=== PATIENT | female | born 1990 | race Caucasian/White ===

== ENCOUNTER → 2016-10-08 | Outpatient (CLI) | payer BC, MEDICAID ==
[~2016-10-08] MED LIST: MOTR200T44 PO; PRENTAB9 PO; TUMS500C PO; TYLE325T5 PO
--- NOTE | 2016-10-08 10:53 | REP ---
Chest two views HISTORY: Upper respiratory infection Comparison: None The lungs are clear. The heart is normal in size. The pulmonary vasculature is normal in appearance. The bony structure is intact. IMPRESSION: No acute disease. Signed by Abel Sood MD 10/08/2016 10:45 A
== END ==
LOC: M LAB 10:30
PROVIDERS: ATTEND Physician Assistant Medical
DX: J06.9 Acute upper respiratory infection, unspecified (principal)

== ENCOUNTER → 2017-03-07 | Outpatient (REF) | payer BC, MEDICAID | LOC: M LAB REF 16:53 | PROVIDERS: ATTEND Advanced Practice Midwife | DX: Z12.4 Encounter for screening for malignant neoplasm of cervix (principal) ==

== ENCOUNTER → 2017-12-18 | Outpatient (CLI) | payer BC ==
[2017-12-19 14:12] LABS: HCG, SERUM QUANTITATIVE 3922 MIU/ML
== END ==
LOC: M LAB 10:34
DX: O20.0 Threatened abortion (principal)
CPT/HCPCS: 84702

== ENCOUNTER → 2017-12-20 | Outpatient (CLI) | payer BC ==
[2017-12-20 12:04] LABS: HCG, SERUM QUANTITATIVE 4765 MIU/ML
== END ==
LOC: M LAB 10:31
DX: O20.0 Threatened abortion (principal)
CPT/HCPCS: 84702

== ENCOUNTER 2018-01-02 11:44 | Day surgery (SDC) | payer BC ==
[2018-01-02 12:32] LABS: HEMATOCRIT 40.6 % (36.0-47.0); HEMOGLOBIN 13.5 g/dl (12.0-15.5); MEAN CORPUSCULAR HEMOGLOBIN 31.7 pg (27.0-33.0); MEAN CORPUSCULAR HGB CONC 33.3 g/dl (32.0-36.5); MEAN CORPUSCULAR VOLUME 95.3 fl (80.0-96.0); PLATELET COUNT, AUTOMATED 353 10^3/uL (150-450); RED BLOOD COUNT 4.26 10^6/uL (4.00-5.40); WHITE BLOOD COUNT 8.2 10^3/uL (4.0-10.0)
[2018-01-02] MEDS: LR 1,000 ML IV (12:40)
[2018-01-02] MEDS: DOXYCYCLINE HYCLATE 100 MG in D5W MINI-BAG PLUS 100 ML IV (13:25)
[2018-01-02] MEDS ORDERED: PROPOFOL 200 MG/20 ML VIAL As Ordered (13:45)
[2018-01-02] MEDS ORDERED: LIDOCAINE 2% INJ 100 MG/5 ML SDV (FOR ANES.) As Ordered (13:45)
[2018-01-02] MEDS ORDERED: MIDAZOLAM INJ 2 MG/2 ML VIAL (J2250) As Ordered (13:46)
[2018-01-02] MEDS ORDERED: fentaNYL 100 MCG/2 ML INJECTION (J3010) As Ordered (13:46)
[2018-01-02] MEDS ORDERED: KETOROLAC 60 MG/2 ML VIAL (J1885) As Ordered (14:08)
[2018-01-02] MEDS ORDERED: ONDANSETRON 4MG/2ML VIAL (J2405) As Ordered (14:08)
[2018-01-02] MEDS ORDERED: dexameTHASONE 4 MG/ML 1ML VIAL (J1100) As Ordered (14:08)
[2018-01-02] MEDS ORDERED: LR 1,000 ML IV ×2 (15:00)
[2018-01-02] MEDS ORDERED: PERCOCET 5MG/325MG TAB PO (15:00)
[2018-01-02] MEDS ORDERED: ONDANSETRON 4MG/2ML VIAL (J2405) IV (15:00)
[2018-01-02] MEDS ORDERED: fentaNYL 100 MCG/2 ML INJECTION (J3010) IV (15:00)
[2018-01-02] MEDS ORDERED: METOCLOPRAMIDE INJ 10MG/2ML VIAL (J2765) IV (15:00)
[2018-01-02] MEDS ORDERED: DOXYCYCLINE HYCLATE 100 MG TAB PO ×2 (15:30→15:45)
== END 2018-01-02 15:59 | disposition home or self-care (01) ==
LOC: M SDC 11:44
DX: O03.4 Incomplete spontaneous abortion without complication (principal); O02.0 Blighted ovum and nonhydatidiform mole; Z88.2 Allergy status to sulfonamides; Z88.0 Allergy status to penicillin; Z87.891 Personal history of nicotine dependence
CPT/HCPCS: 59812

== ENCOUNTER 2018-12-05 08:46 | Emergency (ER) | payer BC ==
[~2018-12-05] VITALS: Ht 167.6 cm; Wt 98.2 kg
[2018-12-05 10:39] LABS: BASO # 0.1 10^3/uL (0.0-0.2); BASO % 0.7 % (0.0-1.0); EOS # 0.1 10^3/uL (0.0-0.50); EOS % 0.6 % (0.0-3.0); HEMATOCRIT 40.3 % (36.0-47.0); HEMOGLOBIN 13.3 g/dl (12.0-15.5); LYMPH % 23.7 % (24.0-44.0); MEAN CORPUSCULAR VOLUME 96.9 fl (80.0-96.0); MONO # 0.5 10^3/uL (0.0-0.8); MONO % 6.3 % (0.0-5.0); NEUTROPHILS # 5.6 10^3/uL (1.8-7.7); NEUTROPHILS % 68.3 % (36.0-66.0); PLATELET COUNT, AUTOMATED 334 10^3/uL (150-450); RED BLOOD COUNT 4.16 10^6/uL (4.00-5.40); WHITE BLOOD COUNT 8.2 10^3/uL (4.0-10.0)
[2018-12-05 11:56] LABS: CHLAMYDIA DNA AMPLIFICATION NEGATIVE (NEGATIVE); GC DNA AMPLIFICATION NEGATIVE (NEGATIVE)
--- NOTE | 2018-12-05 13:24 | REP ---
FIRST TRIMESTER ULTRASOUND: HISTORY: Vaginal bleeding. The uterus measures 4.5 cm in transverse x 3.8 cm in AP x 8.1 cm in cephalocaudal dimensions. The endometrium measures 1.1 cm. There is no intrauterine . The right ovary measures 2.2 x 1.7 x 2.2 cm. The left ovary measures 2.5 x 1.6 x 2.3 cm. There is no fluid in the cul-de-sac. IMPRESSION: The above findings may represent an early intrauterine versus missed . An ectopic cannot be excluded. A repeat examination may be helpful for further evaluation. Electronically Signed by Abel Sood MD 12/05/2018 01:29 P
[2018-12-05 14:11] VITALS: BP 144/82
== END 2018-12-05 14:28 | disposition home or self-care (01) ==
LOC: M ED 08:46
DX: O20.9 Hemorrhage in early pregnancy, unspecified (principal); O10.911 Unspecified pre-existing hypertension complicating pregnancy, first trimester; O99.331 Smoking (tobacco) complicating pregnancy, first trimester; Z3A.00 Weeks of gestation of pregnancy not specified; Z88.2 Allergy status to sulfonamides

== ENCOUNTER → 2018-12-07 | Outpatient (CLI) | payer BC | LOC: M LAB 09:29 | PROVIDERS: ATTEND Physician Assistant | DX: O26.851 Spotting complicating pregnancy, first trimester (principal) ==

== ENCOUNTER → 2018-12-09 | Outpatient (CLI) | payer BC | LOC: M LAB 09:26 | PROVIDERS: ATTEND Obstetrics & Gynecology | DX: O20.0 Threatened abortion (principal); Z3A.00 Weeks of gestation of pregnancy not specified ==

== ENCOUNTER → 2018-12-09 | Outpatient (CLI) | payer BC | LOC: M LAB 09:29 | PROVIDERS: ATTEND Advanced Practice Midwife | DX: O20.0 Threatened abortion (principal); Z3A.00 Weeks of gestation of pregnancy not specified ==

== ENCOUNTER → 2018-12-15 | Outpatient (CLI) | payer BC | LOC: M LAB 08:01 | PROVIDERS: ATTEND Obstetrics & Gynecology | DX: O20.0 Threatened abortion (principal) ==

== ENCOUNTER → 2018-12-21 | Outpatient (CLI) | payer BC | LOC: M LAB 10:53 | PROVIDERS: ATTEND Obstetrics & Gynecology | DX: O03.4 Incomplete spontaneous abortion without complication (principal) ==

== ENCOUNTER → 2019-01-21 | Outpatient (CLI) | payer BC ==
[2019-01-21 07:22] LABS: BASO # 0.1 10^3/uL (0.0-0.2); BASO % 0.8 % (0.0-1.0); EOS # 0.1 10^3/uL (0.0-0.50); HEMATOCRIT 39.2 % (36.0-47.0); HEMOGLOBIN 13.1 g/dl (12.0-15.5); LYMPH # 2.3 10^3/uL (1.5-6.5); LYMPH % 25.6 % (24.0-44.0); MEAN CORPUSCULAR HEMOGLOBIN 31.6 pg (27.0-33.0); MEAN CORPUSCULAR HGB CONC 33.4 g/dl (32.0-36.5); MEAN CORPUSCULAR VOLUME 94.5 fl (80.0-96.0); MONO # 0.6 10^3/uL (0.0-0.8); MONO % 6.4 % (0.0-5.0); NEUTROPHILS # 5.9 10^3/uL (1.8-7.7); PLATELET COUNT, AUTOMATED 307 10^3/uL (150-450); RED BLOOD COUNT 4.15 10^6/uL (4.00-5.40)
[2019-01-21 07:55] LABS: ALBUMIN 3.8 GM/DL (3.2-5.2); ALT/SGPT 16 U/L (12-78); BILIRUBIN,TOTAL 0.3 MG/DL (0.2-1.0); BLOOD UREA NITROGEN 14 MG/DL (7-18); CALCIUM LEVEL 8.4 MG/DL (8.5-10.1); CARBON DIOXIDE LEVEL 25 MEQ/L (21-32); CHLORIDE LEVEL 108 MEQ/L (98-107); CHOLESTEROL LEVEL 205 MG/DL (<200); CREATININE FOR GFR 0.72 MG/DL (0.55-1.30); FREE T4 0.99 NG/DL (0.76-1.46); GLOMERULAR FILTRATION RATE > 60.0 (>60); GLUCOSE, FASTING 90 MG/DL (70-100); HDL CHOLESTEROL 56 MG/DL (>40); LDL CHOLESTEROL 107 MG/DL (<100); NON-HDL-C 149 MG/DL; POTASSIUM SERUM 4.1 MEQ/L (3.5-5.1); SODIUM LEVEL 140 MEQ/L (136-145); TOTAL PROTEIN 6.9 GM/DL (6.4-8.2); TRIGLYCERIDES LEVEL 209 MG/DL (<150)
[2019-01-22 14:11] LABS: ANTINUCLEAR ANTIBODIES DIRECT Negative (Negative)
== END ==
LOC: M LAB 06:39
PROVIDERS: ATTEND Internal Medicine
DX: Z00.00 Encounter for general adult medical examination without abnormal findings (principal); Z87.59 Personal history of other complications of pregnancy, childbirth and the puerperium

== ENCOUNTER 2019-05-06 06:01 | Emergency (ER) | payer OTHER, BC ==
[~2019-05-06] VITALS: Ht 167.6 cm; Wt 87.3 kg
[2019-05-06] MEDS ORDERED: ATOR1TAB21 PO (06:06)
[2019-05-06] MEDS ORDERED: SERT-155 PO (06:06)
[2019-05-06] MEDS ORDERED: AMLO5TAB6 PO (06:06)
[2019-05-06] MEDS ORDERED: ACETAMINOPHEN 325 MG TAB PO ONE (06:45)
[2019-05-06] MEDS ORDERED: NEOSPORIN OINT 0.9 GM PKT (FLOOR STOCK) TOP ONE (06:45)
[2019-05-06 07:14] VITALS: BP 138/85
== END 2019-05-06 07:21 | disposition home or self-care (01) ==
LOC: M ED 06:01
DX: T25.231A Burn of second degree of right toe(s) (nail), initial encounter (principal); T31.0 Burns involving less than 10% of body surface; Y92.89 Other specified places as the place of occurrence of the external cause; Y93.89 Activity, other specified; I10 Essential (primary) hypertension; E78.5 Hyperlipidemia, unspecified; Z72.0 Tobacco use; Z79.899 Other long term (current) drug therapy; Z88.2 Allergy status to sulfonamides

== ENCOUNTER 2019-05-08 12:53 | Emergency (ER) | payer OTHER, BC ==
[~2019-05-08] VITALS: Ht 167.6 cm; Wt 87.6 kg
[~2019-05-08 12:53] MED LIST changes: +AMLO5TAB6 PO; +ATOR1TAB21 PO; +SERT-155 PO
[2019-05-08] MEDS ORDERED: KEFL500C17 PO (14:03)
[2019-05-08] MEDS ORDERED: CEPHALEXIN 500 MG CAP PO ONE (14:15)
[2019-05-08 14:19] VITALS: BP 131/80
== END 2019-05-08 14:23 | disposition home or self-care (01) ==
LOC: M ED 12:53
DX: T25.231D Burn of second degree of right toe(s) (nail), subsequent encounter (principal); T31.0 Burns involving less than 10% of body surface; X12.XXXA Contact with other hot fluids, initial encounter; Y99.0 Civilian activity done for income or pay; F17.210 Nicotine dependence, cigarettes, uncomplicated; Z79.899 Other long term (current) drug therapy; Z88.2 Allergy status to sulfonamides

== ENCOUNTER → 2019-11-17 | Outpatient (REF) | payer BC ==
[~2019-11-17] MED LIST changes: +KEFL500C17 PO; -SERT-155 PO; +SERT50TA29 PO
[2019-11-17 16:57] LABS: INFLUENZA A AMPLIFICATION NEGATIVE (NEGATIVE); INFLUENZA B AMPLIFICATION NEGATIVE (NEGATIVE)
== END ==
LOC: M LAB REF 15:37
PROVIDERS: ATTEND Physician Assistant
DX: J11.1 Influenza due to unidentified influenza virus with other respiratory manifestations (principal)

== ENCOUNTER → 2019-11-23 | Outpatient (REF) | payer BC ==
[2019-11-23 13:21] LABS: INFLUENZA A AMPLIFICATION POSITIVE (NEGATIVE); INFLUENZA B AMPLIFICATION NEGATIVE (NEGATIVE)
== END ==
LOC: M LAB REF 12:14
PROVIDERS: ATTEND Physician Assistant
DX: J11.1 Influenza due to unidentified influenza virus with other respiratory manifestations (principal)

== ENCOUNTER → 2020-01-18 | Outpatient (REF) | payer BC | LOC: M PLALAB 15:18 | PROVIDERS: ATTEND Obstetrics & Gynecology | DX: N96 Recurrent pregnancy loss (principal) ==

== ENCOUNTER → 2020-03-28 | Outpatient (CLI) | payer BC ==
[~2020-03-28] MED LIST changes: +AMLO1TAB24 PO; -AMLO5TAB6 PO
== END ==
LOC: M LABSMTC 12:36
PROVIDERS: ATTEND Pediatrics
DX: Z11.59 Encounter for screening for other viral diseases (principal)
CPT/HCPCS: C9803; U0002

== ENCOUNTER → 2020-04-17 | Outpatient (REF) | payer BC | LOC: M SFHCWAGY 13:53 | PROVIDERS: ATTEND Obstetrics & Gynecology | DX: Z32.00 Encounter for pregnancy test, result unknown (principal) ==

== ENCOUNTER → 2020-04-19 | Outpatient (REF) | payer BC | LOC: M SFHCWAGY 12:29 | PROVIDERS: ATTEND Obstetrics & Gynecology | DX: O10.019 Pre-existing essential hypertension complicating pregnancy, unspecified trimester (principal); Z3A.00 Weeks of gestation of pregnancy not specified ==

== ENCOUNTER → 2020-05-26 | Outpatient (CLI) | payer BC ==
[2020-05-26 12:16] LABS: BASO % 0.4 % (0.0-1.0); EOS # 0.1 10^3/uL (0.0-0.5); HEMATOCRIT 39.5 % (36.0-47.0); HEMOGLOBIN 12.8 g/dl (12.0-15.5); LYMPH # 2.1 10^3/uL (1.5-5.0); LYMPH % 20.6 % (24.0-44.0); MEAN CORPUSCULAR HEMOGLOBIN 31.3 pg (27.0-33.0); MEAN CORPUSCULAR HGB CONC 32.4 g/dl (32.0-36.5); MEAN CORPUSCULAR VOLUME 96.6 fl (80.0-96.0); MONO # 0.6 10^3/uL (0.0-0.8); MONO % 5.7 % (0.0-5.0); NEUTROPHILS # 7.2 10^3/uL (1.5-8.5); PLATELET COUNT, AUTOMATED 333 10^3/uL (150-450); RED BLOOD COUNT 4.09 10^6/uL (4.00-5.40)
[2020-05-26 12:41] LABS: ALBUMIN 3.1 GM/DL (3.2-5.2); ALT/SGPT 13 U/L (12-78); BILIRUBIN,TOTAL 0.2 MG/DL (0.2-1.0); BLOOD UREA NITROGEN 9 MG/DL (7-18); CALCIUM LEVEL 8.9 MG/DL (8.5-10.1); CARBON DIOXIDE LEVEL 24 MEQ/L (21-32); CHLORIDE LEVEL 107 MEQ/L (98-107); CREATININE FOR GFR 0.57 MG/DL (0.55-1.30); GLOMERULAR FILTRATION RATE > 60.0 (>60); GLUCOSE, FASTING 97 MG/DL (70-100); POTASSIUM SERUM 3.9 MEQ/L (3.5-5.1); SODIUM LEVEL 138 MEQ/L (136-145); TOTAL PROTEIN 6.6 GM/DL (6.4-8.2)
[2020-05-26 12:57] LABS: HEMOGLOBIN A1c 5.2 %
[2020-05-26 13:29] LABS: HEPATITIS C VIRUS ABY INDEX 0.2 INDEX (<0.8); HIV 1&2 SCREEN CENTAUR NEGATIVE (NEGATIVE)
== END ==
LOC: M PLALAB 10:16
PROVIDERS: ATTEND Obstetrics & Gynecology
DX: O10.919 Unspecified pre-existing hypertension complicating pregnancy, unspecified trimester (principal)

== ENCOUNTER → 2020-05-26 | Outpatient (REF) | payer BC ==
[2020-05-26 15:06] LABS: TOTAL PROTEIN,RANDOM URINE 15.5 MG/DL (0.0-12.0)
== END ==
LOC: M SFHCWAGY 13:41
PROVIDERS: ATTEND Obstetrics & Gynecology
DX: O10.011 Pre-existing essential hypertension complicating pregnancy, first trimester (principal); Z3A.00 Weeks of gestation of pregnancy not specified

== ENCOUNTER → 2020-07-19 | Outpatient (CLI) | payer BC, MEDICAID ==
--- NOTE | 2020-07-20 07:48 | REP ---
INDICATION: ANATOMY COMPARISON: None. TECHNIQUE: Transabdominal obstetrical ultrasound with color Doppler evaluation. FINDINGS: Examination demonstrates a single live intrauterine in cephalic presentation. motion is identified by technologist. Placenta is noted posterior and grade 1 without evidence for placenta previa or abruption. Amniotic fluid volume is normal. Cervix measures 3.4 cm in length and appears closed.. Gestational age by current measurements 19 weeks 2 days with ZAIN 12/11/2020. FHR equals 140 beats per minute. BPD: 4.4 cm 19 weeks 1 day HC: 16.2 cm 19 weeks 0 days AC: 14.5 cm there is 19 weeks 6 days FL: 3.0 cm 19 weeks 2 days HL: 2.8 cm 19 weeks 0 days HC/AC: 1.12 Estimated weight 297 grams (61stpercentile). Anatomical assessment demonstrates normal structures including cranium, cavum, cerebellum/posterior fossa, facial features, lungs, four-chamber heart/ventricular outflow tracts, diaphragm, stomach, cord insertion/three-vessel cord, kidneys/bladder, spine, and extremities. Multi-cystic versus multi-septated cystic changes to the bilateral choroid plexus noted measuring up to 6 mm diameter. IMPRESSION: 1. Single live intrauterine in cephalic presentation demonstrating appropriate estimated weight. 2. Cystic changes to the bilateral choroid plexus. Consider follow-up examination. Remainder of the anatomical assessment appears complete and normal. <Electronically signed by Shahbaz Mckeon > 07/20/20 1949
== END ==
LOC: M WHC 14:30
PROVIDERS: ATTEND Specialist
DX: Z34.82 Encounter for supervision of other normal pregnancy, second trimester (principal); Z3A.19 19 weeks gestation of pregnancy

== ENCOUNTER → 2020-08-02 | Outpatient (CLI) | payer BC, MEDICAID | LOC: M WHC 14:25 | PROVIDERS: ATTEND Obstetrics & Gynecology | DX: Z3A.20 20 weeks gestation of pregnancy (principal); Z53.9 Procedure and treatment not carried out, unspecified reason ==

== ENCOUNTER → 2020-08-04 | Outpatient (CLI) | payer BC ==
--- NOTE | 2020-08-04 16:30 | REP ---
INDICATION: RE-EVAL CHOROID PLEXUS CYSTS. COMPARISON: 07/19/2020 FINDINGS: Bilateral choroid plexus cysts with septations are again seen. These are unchanged. Multiple ultrasonographic images of the gravid uterus shows a single living intrauterine gestation in variable positions. The placenta is posterior and not low-lying. The cervix measures 3.6 cm in length and is closed. Doppler interrogation of the heart is a heart rate of 161 beats per minute. The subjective amniotic fluid volume is within normal limits. BPD: 5.0 cm (21 weeks 1 day) HC: 18.1 cm.) 20 weeks 3 days) FL: 3.6 cm (21 weeks 2 days) Estimated weight is 419 g which is greater than 97th percentile for a 20 week 2 day gestational age. IMPRESSION: Single living intrauterine gestation as described above with an estimated gestational age of 21 weeks 2 days via composite criteria and an estimated date of delivery of 12/13/2020 by today's exam. Persistent choroid plexus cysts as described above. Additional follow-up is warranted. <Electronically signed by Nelson Black > 08/04/20 2746
== END ==
LOC: M WHC 14:32
PROVIDERS: ATTEND Obstetrics & Gynecology
DX: O41.8X20 Other specified disorders of amniotic fluid and membranes, second trimester, not applicable or unspecified (principal); Z3A.20 20 weeks gestation of pregnancy

== ENCOUNTER → 2020-08-30 | Outpatient (REF) | payer BC, MEDICAID | LOC: M PLALAB 14:52 | PROVIDERS: ATTEND Obstetrics & Gynecology | DX: Z3A.24 24 weeks gestation of pregnancy (principal) ==

== ENCOUNTER → 2020-09-08 | Outpatient (REF) | payer BC, MEDICAID ==
[2020-09-08 15:35] LABS: ALBUMIN 2.7 GM/DL (3.2-5.2); ALT/SGPT 13 U/L (12-78); BILIRUBIN,DIRECT < 0.1 MG/DL (0.0-0.2); BILIRUBIN,TOTAL 0.2 MG/DL (0.2-1.0); TOTAL PROTEIN 6.3 GM/DL (6.4-8.2)
== END ==
LOC: M PLALAB 13:31
PROVIDERS: ATTEND Advanced Practice Midwife
DX: R21 Rash and other nonspecific skin eruption (principal)

== ENCOUNTER → 2020-09-25 | Outpatient (REF) | payer BC, MEDICAID ==
[2020-09-25 12:25] LABS: HEMATOCRIT 36.9 % (36.0-47.0); HEMOGLOBIN 11.7 g/dl (12.0-15.5); MEAN CORPUSCULAR HEMOGLOBIN 30.7 pg (27.0-33.0); MEAN CORPUSCULAR HGB CONC 31.7 g/dl (32.0-36.5); MEAN CORPUSCULAR VOLUME 96.9 fl (80.0-96.0); PLATELET COUNT, AUTOMATED 331 10^3/uL (150-450); RED BLOOD COUNT 3.81 10^6/uL (4.00-5.40); WHITE BLOOD COUNT 10.1 10^3/uL (4.0-10.0)
== END ==
LOC: M PLALAB 08:44
PROVIDERS: ATTEND Obstetrics & Gynecology
DX: O99.810 Abnormal glucose complicating pregnancy (principal); Z3A.24 24 weeks gestation of pregnancy

== ENCOUNTER → 2020-10-11 | Outpatient (REF) | payer SELFPAY | LOC: M LABSMTC 14:08 → EDSTATUS 14:15 → M LABSMTC 16:07 | PROVIDERS: ATTEND Pediatrics | DX: Z20.822 Contact with and (suspected) exposure to COVID-19 (principal) ==

== ENCOUNTER → 2020-10-16 | Outpatient (CLI) | payer BC, MEDICAID ==
[~2020-10-16] VITALS: Ht 167.6 cm; Wt 104.6 kg
[2020-10-16 15:49] VITALS: BP 126/71
[2020-10-16 16:03] VITALS: BP 126/77
[2020-10-16 16:19] VITALS: BP 120/76
[2020-10-16 16:33] VITALS: BP 127/75
--- NOTE | 2020-10-16 16:56 | IPNPDOC ---
Text Note Date of Service The patient was seen on 10/16/20. NOTE Outpatient Subjective: Eufmeia is a 30 y/o at 30.5 weeks by LMP 03/11/20, ZAIN 12/20/2020. Started care at [facility] in the first trimester. She was sent over from the office by Dr. Bejarano for elevated BPs. Denies headaches, visual changes, epigastric pain, nausea. Reports active movement. Denies difficulty breathing, SOB, chest pain. Denies contractions, vaginal bleeding, LOF. C/O round ligament pain that is exacerbated by working her 8hr shifts. Discussed use of a large maternity belt, compression stockings that extend up to the abdomen for good support, supportive shoes, and good body mechanics. Medical Hx.: Chronic HTN, taking Amlodipine 10mg PO daily, anxiety taking Zoloft 25mg, obesity (BMi 37.2) Surgical Hx.: [place] tooth removal, 2018-D&C with miscarriage [employer] Hx.: x1 at 38weeks, SAB x3 Family Hx.: Stroke, hypertension, heart disease Social Hx.: Smoker, , Denies illicit drug or alcohol use. 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 Objective: VS: Normotensive, afebrile. Manual BP 128/76. General: Alert and oriented x3. Respiratory: Regular rate, no accessory muscle use. Abdomen: Gravid. Soft, nontender. Extremities: Mild edema bilaterally,nonpitting. Negative calf tenderness. Negative clonus. DTRs +2. Fetus: 135bpm baseline, moderate variability, positive 10x10 accelerations, no decelerations, Category 1 FHT. TOCO: irregular contractions, patient unaware of them. Assessment: IUP at 30.5weeks. Chronic HTN. Not in active labor. Not SROM. Plan: Preeclamptic work up per Dr. Bejarano Serial BPs NST Patient to make an appointment for growth sono at 32weeks and make an appointment for her 3hr GTT due to 1hr failed. Discharged patient home today with precautions. Discussed reasons to call and/or return to L&D including s/s of preeclampsia, vaginal bleeding, LOF, regular contractions, and decreased movement. VS,Fishbone, I+O VS, Fishbone, I+O Vital Signs Date Time Temp Pulse Resp B/P (MAP) Pulse Ox O2 Delivery O2 Flow Rate FiO2 10/16/20 16:19 74 18 120/76 (91) 10/16/20 15:49 99.0 GABINO DOWELL Oct 16, 2020 16:56
[2020-10-16 17:10] LABS: HEMATOCRIT 36.9 % (36.0-47.0); HEMOGLOBIN 11.7 g/dl (12.0-15.5); MEAN CORPUSCULAR HGB CONC 31.7 g/dl (32.0-36.5); MEAN CORPUSCULAR VOLUME 97.9 fl (80.0-96.0); PLATELET COUNT, AUTOMATED 299 10^3/uL (150-450); RED BLOOD COUNT 3.77 10^6/uL (4.00-5.40); WHITE BLOOD COUNT 10.6 10^3/uL (4.0-10.0)
[2020-10-16 17:39] LABS: ALT/SGPT 11 U/L (12-78); BILIRUBIN,TOTAL < 0.1 MG/DL (0.2-1.0); GLOMERULAR FILTRATION RATE > 60.0 (>60); LDH LACTATE DEHYDROGENASE 137 U/L (84-246); URIC ACID 3.7 MG/DL (2.6-6.0)
[2020-10-16 17:52] LABS: TOTAL PROTEIN,RANDOM URINE 18.1 MG/DL (0.0-12.0)
== END ==
LOC: M LDO 15:06
PROVIDERS: ATTEND Advanced Practice Midwife
DX: O10.013 Pre-existing essential hypertension complicating pregnancy, third trimester (principal); Z3A.30 30 weeks gestation of pregnancy; Z87.59 Personal history of other complications of pregnancy, childbirth and the puerperium; Z88.1 Allergy status to other antibiotic agents; Z88.2 Allergy status to sulfonamides
CPT/HCPCS: 36415; 82247; 82565; 82570; 83615; 84156; 84450; 84460; 84550; 85027; G0378; G0463

== ENCOUNTER → 2020-10-16 | Outpatient (CLI) | payer BC, MEDICAID | LOC: M WHC 15:00 | PROVIDERS: ATTEND Obstetrics & Gynecology | DX: Z34.83 Encounter for supervision of other normal pregnancy, third trimester (principal); Z3A.30 30 weeks gestation of pregnancy ==

== ENCOUNTER → 2020-10-20 | Outpatient (CLI) | payer BC, MEDICAID | LOC: M LAB 07:56 | PROVIDERS: ATTEND Obstetrics & Gynecology | DX: O99.810 Abnormal glucose complicating pregnancy (principal); Z3A.00 Weeks of gestation of pregnancy not specified ==

== ENCOUNTER → 2020-10-27 | Outpatient (CLI) | payer BC, MEDICAID ==
--- NOTE | 2020-10-27 09:26 | REP ---
INDICATION: GROWTH/HYPERTENSION COMPARISON: 08/04/2020 TECHNIQUE: Transabdominal obstetrical ultrasound with color Doppler evaluation. FINDINGS: Examination demonstrates a single live intrauterine in cephalic presentation. motion is identified by technologist. Placenta is noted posterior and grade 1 without evidence for placenta previa or abruption. Amniotic fluid volume is normal. Cervix measures 3.1 cm in length and appears closed.. Gestational age by LMP 32 weeks 2 days with ZAIN 12/20/2020. Gestational age by current measurements 33 weeks 3 days with ZAIN 12/12/2020. FHR equals 143 beats per minute. BPD: 8.5 cm 34 weeks 2 days HC: 30.5 cm 34 weeks 0 days AC: 30.5 cm 34 weeks 3 days FL: 6.2 cm 32 weeks 0 days HL: 5.6 cm 32 weeks 5 days HC/AC: 1.00 Estimated weight 2256 grams (82ndpercentile). MAGGIE: 14.7 cm IMPRESSION: Single live intrauterine in cephalic presentation demonstrating appropriate interval growth. Previously noted choroid plexus cysts appear to have resolved. No gross abnormalities are identified. <Electronically signed by Shahbaz Mckeon > 10/27/20 0923
== END ==
LOC: M WHC 08:08
PROVIDERS: ATTEND Specialist
DX: O10.013 Pre-existing essential hypertension complicating pregnancy, third trimester (principal)

== ENCOUNTER → 2020-11-13 | Outpatient (CLI) | payer SELFPAY | LOC: M LABSMTC 10:29 | PROVIDERS: ATTEND Pediatrics | DX: Z20.828 Contact with and (suspected) exposure to other viral communicable diseases (principal) ==

== ENCOUNTER → 2020-11-15 | Outpatient (CLI) | payer BC, MEDICAID | LOC: M WHC 14:41 | PROVIDERS: ATTEND Obstetrics & Gynecology | DX: Z34.93 Encounter for supervision of normal pregnancy, unspecified, third trimester (principal); Z3A.35 35 weeks gestation of pregnancy; Z53.9 Procedure and treatment not carried out, unspecified reason ==

== ENCOUNTER → 2020-11-22 | Outpatient (CLI) | payer BC, MEDICAID ==
--- NOTE | 2020-11-22 16:58 | REP ---
INDICATION: GROWTH COMPARISON: 10/27/2020 TECHNIQUE: Transabdominal obstetrical ultrasound with color Doppler evaluation. FINDINGS: Examination demonstrates a single live intrauterine in cephalic presentation. motion is identified by technologist. Placenta is noted posterior and grade 2 without evidence for placenta previa or abruption. Amniotic fluid volume is normal. Cervix measures 3.2 cm in length and appears closed.. Gestational age by LMP 36 weeks 0 days with ZAIN 12/20/2020. Gestational age by 1st ultrasound 37 weeks 2 days with ZAIN 12/11/2020. Gestational age by current measurements 36 weeks 2 days with ZAIN 12/18/2020. FHR equals 143 beats per minute. BPD: 9.1 cm at 36 weeks 6 days HC: 31.7 cm at 35 weeks 4 days AC: 34.6 cm at 30 weeks 4 days FL: 6.8 cm at 34 weeks 6 days HL: 6.2 cm at 36 weeks 0 days HC/AC: 0.92 Estimated weight 3131 grams (80thpercentile based on age by LMP). MAGGIE: 9.1 cm (7.7-24.9) IMPRESSION: Single live advanced gestation in cephalic presentation demonstrating relatively appropriate interval growth. No obvious gross abnormalities are identified. <Electronically signed by Shahbaz Mckeon > 11/22/20 1924
== END ==
LOC: M WHC 15:25
PROVIDERS: ATTEND Obstetrics & Gynecology
DX: O10.013 Pre-existing essential hypertension complicating pregnancy, third trimester (principal); O99.333 Smoking (tobacco) complicating pregnancy, third trimester; Z3A.36 36 weeks gestation of pregnancy

== ENCOUNTER → 2020-11-23 | Outpatient (REF) | payer BC, MEDICAID | LOC: M SFHCWAGY 18:08 | PROVIDERS: ATTEND Obstetrics & Gynecology | DX: O10.013 Pre-existing essential hypertension complicating pregnancy, third trimester (principal) ==

== ENCOUNTER 2020-11-29 09:35 | Inpatient (IN) | payer BC, MEDICAID ==
[~2020-11-29] VITALS: Ht 167.6 cm; Wt 107.2 kg
[2020-11-29] VITALS (16 sets, daily range): BP systolic 108–145; BP diastolic 53–81
[2020-11-29] MEDS ORDERED: LABE20TAB PO (09:48)
[2020-11-29] MEDS ORDERED: LACTATED RINGER'S 1000 ML IV ONE (10:45)
[2020-11-29] MEDS ORDERED: miSOPROStol 50MCG 1/2 TABLET PO ONE ×2 (10:45→15:45)
[2020-11-29 10:53] LABS: HEMOGLOBIN 11.6 g/dl (12.0-15.5); MEAN CORPUSCULAR HEMOGLOBIN 31.5 pg (27.0-33.0); MEAN CORPUSCULAR HGB CONC 33.1 g/dl (32.0-36.5); MEAN CORPUSCULAR VOLUME 95.1 fl (80.0-96.0); PLATELET COUNT, AUTOMATED 269 10^3/uL (150-450); RED BLOOD COUNT 3.68 10^6/uL (4.00-5.40); WHITE BLOOD COUNT 10.1 10^3/uL (4.0-10.0)
--- NOTE | 2020-11-29 11:05 | HPE ---
HISTORY AND PHYSICAL DATE OF ADMISSION: 11/29/2020 HISTORY OF PRESENT ILLNESS: Eufemia is a 30-year-old 5 para 1-0-3-1 at 37 weeks gestation, EDC of 12/20/2020 based on last menstrual period and confirmed by first trimester ultrasound. She presents to Labor and Delivery today for an induction of labor due to chronic hypertension and obesity. Her blood pressures has been managed with amlodipine and Labetalol throughout her . She is normotensive today. She denies contractions, vaginal bleeding or leakage of fluid. She does report positive movement. care initiated at [facility] in the first trimester. course complicated by chronic hypertension and obesity. OBSTETRIC HISTORY: On 06/02/2016, 38 weeks gestation, 7 pound, 12 ounce male, spontaneous vaginal delivery, epidural for labor coping following premature rupture of membranes and elevated blood pressure, and then three miscarriages. OBSTETRIC LABS: O positive, antibody screen negative, syphilis negative, hepatitis B negative, hepatitis C negative. HIV negative. Rubella immune. GBS is 138. Her 3 hour glucose tolerance test is normal with a fasting of 82, 1 hour 161, 2 hour 104, 3 hour 47. GBS is negative. PAST MEDICAL HISTORY: Chronic hypertension, anxiety, obesity. PAST SURGICAL HISTORY: [place] tooth extraction, D and C following one of her miscarriages. FAMILY HISTORY: Cerebral infarction, hypertension and COPD. SOCIAL HISTORY: The patient is . She works at [employer] in the [employer]. She smoked five cigarettes or less throughout her . She denies alcohol and drug use. She has no history of sexually transmitted infections and she denies a history of abuse, physical, sexual or emotional. ALLERGIES: Sulfa. CURRENT MEDICATIONS: 1. Amlodipine. 2. Labetalol. 3. vitamin as ordered, last dose this morning. PHYSICAL EXAMINATION: Blood pressure 112/67, pulse 90, a complete set of vital signs have yet to be taken. heart rate is 145 with moderate variability, there are no accelerations and no decelerations. There is no pattern of regular contractions. Her abdomen is gravid, cephalic presentation by Kb's. Estimated weight 3300 grams. Sterile vaginal exam: 2 cm dilated, 50% effaced, 0 station, very posterior, moderate texture and no show with the exam. ASSESSMENT: Intrauterine at 37 weeks, heart rate is Category 1, chronic hypertension. PLAN: Per consult with Dr. Bejarano. Admit patient to Labor and Delivery for induction of labor, saline lock, routine laboratories with the addition of preeclamptic profile. Out of bed ad anton, regular diet at this time. I plan to start Misoprostol 50 mcg p.o. for cervical ripening. I did verbally consent the patient for emergency surgery and blood products if they are necessary. The risks, benefits and alternatives have been explained. All of her questions and her 's questions have been answered. I do anticipate cervical ripening, likely will start Pitocin for labor induction and the patient does desire an epidural when she is uncomfortable.
[2020-11-29 12:03] LABS: ALT/SGPT 10 U/L (12-78); BILIRUBIN,TOTAL 0.2 MG/DL (0.2-1.0); CREATININE FOR GFR 0.54 MG/DL (0.55-1.30); GLOMERULAR FILTRATION RATE > 60.0 (>60); LDH LACTATE DEHYDROGENASE 150 U/L (84-246); URIC ACID 4.8 MG/DL (2.6-6.0)
[2020-11-29 16:22] LABS: CHLAMYDIA DNA AMPLIFICATION NEGATIVE (NEGATIVE); GC DNA AMPLIFICATION NEGATIVE (NEGATIVE)
[2020-11-29] MEDS ORDERED: SLF 3 ML SYR IV PRN (18:05)
[2020-11-29] MEDS ORDERED: LR 1,000 ML IV SCH (18:35)
[2020-11-29] MEDS ORDERED: OXYTOCIN DRIP 30 UNITS in IV 1 EA IV SCH (18:35)
[2020-11-29] MEDS: LABETALOL 200 MG TAB PO SCH (21:02)
[2020-11-29] MEDS ORDERED: SLF 3 ML SYR IV SCH (22:00)
[2020-11-30] VITALS (39 sets, daily range): BP systolic 103–195; BP diastolic 55–82
[2020-11-30] MEDS ORDERED: FENTANYL 2MCG/ML ROPIVACAINE 0.2% IN 0.9% NACL 100ML IVBAG As Ordered ONE (03:35)
[2020-11-30] MEDS ORDERED: EPIDURAL/PCA KEYS XX PRN (05:15)
[2020-11-30] MEDS ORDERED: EPIDURAL COMMENT XX SCH (05:15)
[2020-11-30] MEDS ORDERED: ONDANSETRON 4MG/2ML VIAL IV PRN (05:15)
[2020-11-30] MEDS ORDERED: REFRIGERATOR IV KEYS XX PRN (05:15)
[2020-11-30] MEDS ORDERED: LACTATED RINGER'S 1000 ML IV PRN (05:15)
[2020-11-30] MEDS ORDERED: FENTANYL/ROPIVACAINE/NACL BAG 100 ML EPIDURAL SCH (05:15)
[2020-11-30] MEDS ORDERED: diphenhydrAMINE 50MG/ML VIAL (J1200) IV PRN (05:15)
[2020-11-30] MEDS ORDERED: NALOXONE INJ 0.4MG/1ML VIAL (J2310 PER 1MG) IV PRN (05:15)
[2020-11-30] MEDS ORDERED: ePHEDrine SULFATE 25 MG/5 ML(5MG/ML) SYRINGE IV PRN (05:15)
[2020-11-30] MEDS ORDERED: OXYTOCIN DRIP 30 UNITS in IV 1 EA IV SCH (07:41)
[2020-11-30] MEDS ORDERED: MEASLES,MUMPS,RUBELLA VACCINE INJ (MMR-II) (90707) SC SCH (07:45)
[2020-11-30] MEDS ORDERED: RHOGAM 300 MCG (1500 IU) INJ (J2790) IM SCH (07:45)
[2020-11-30] MEDS ORDERED: ACETAMINOPHEN TAB 650MG DOSE (2X325MG) PO PRN (07:45)
[2020-11-30] MEDS ORDERED: DIBUCAINE 1% OINTMENT 30GM TOP PRN (07:45)
[2020-11-30] MEDS: PRENATAL VITAMINS CHEWABLE TABLET PO SCH (10:10)
[2020-11-30] MEDS: LABETALOL 200 MG TAB PO SCH ×2 (10:11→21:07)
[2020-11-30] MEDS: SERTRALINE HCL 25 MG TABLET PO SCH (11:28)
[2020-11-30] MEDS: ACETAMINOPHEN 500 MG TAB PO PRN ×2 (14:11→21:16)
[2020-11-30] MEDS: IBUPROFEN 800 MG TAB PO PRN (15:57)
[2020-11-30] MEDS: DOCUSATE SODIUM 100MG CAPSULE PO PRN (21:15)
[2020-12-01] MEDS: IBUPROFEN 800 MG TAB PO PRN ×2 (03:33→13:32)
[2020-12-01 06:00] VITALS: BP 136/73
--- NOTE | 2020-12-01 08:09 | DN ---
DELIVERY NOTE DATE OF DELIVERY: 11/30/2020 TIME OF : 0702 GENDER: Male APGARS: 5 and 7 LACERATIONS: Vaginal abrasion. ANESTHESIA: Epidural. ESTIMATED BLOOD LOSS: 300 mL. COUNTS: Correct and verified. DESCRIPTION OF DELIVERY: Eufemia is a 30-year-old 5, para 2-0-3-2 now who was induced due to chronic hypertension. She had misoprostol and IV Pitocin and labor ensued. She used an epidural for her labor coping. She reached complete dilation at 0655. She pushed to a normal spontaneous vaginal delivery of a live male in occiput anterior (OA) position with restitution to left occiput transverse (LOT) position at 0702. There was no cord. Shoulders delivered spontaneously and the corpus immediately followed. was placed on the maternal abdomen crying and active. Mouth and nares were bulb suctioned. The cord was clamped x2 and cut by the father of the baby under my direction. Spontaneous expulsion of an intact placenta with three-vessel cord by Manuel mechanism was at 0709. Uterine hemostasis was achieved with IV Pitocin rapid infusion and uterine fundal massage. Estimated blood loss 300 mL. Perineum and vagina inspected and noted to have a vaginal abrasion. The abrasion was repaired with two interrupted sutures and Vicryl Rapide for hemostasis. [place] male weighed 3300 grams (7 pounds 4 ounces). Apgars 5 and 7. Family has named him Garrett and mom is going to bottle feed. At the close of delivery lap counts, needle counts, and instrument counts were correct and verified.
[2020-12-01] MEDS: SERTRALINE HCL 25 MG TABLET PO SCH (09:38)
[2020-12-01] MEDS: PRENATAL VITAMINS CHEWABLE TABLET PO SCH (09:38)
[2020-12-01] MEDS: LABETALOL 200 MG TAB PO SCH ×2 (09:41→21:06)
[2020-12-01 18:00] VITALS: BP 136/63
[2020-12-01] MEDS: DOCUSATE SODIUM 100MG CAPSULE PO PRN (21:07)
[2020-12-01] MEDS: IBUPROFEN 600MG TAB PO PRN (21:10)
[2020-12-02 05:56] VITALS: BP 142/63
[2020-12-02] MEDS: IBUPROFEN 600MG TAB PO PRN (07:16)
[2020-12-02 08:48] VITALS: BP 138/80
[2020-12-02] MEDS: LABETALOL 200 MG TAB PO SCH (08:48)
[2020-12-02] MEDS: PRENATAL VITAMINS CHEWABLE TABLET PO SCH (08:48)
[2020-12-02] MEDS: SERTRALINE HCL 25 MG TABLET PO SCH (08:48)
[2020-12-02] MEDS: IBUPROFEN 800 MG TAB PO PRN (13:49)
[2020-12-02 18:00] VITALS: BP 114/71
== END 2020-12-02 14:00 | disposition home or self-care (01) | DRG 560 ==
LOC: M LDI 09:35 → M OBS 11-30 09:48
PROVIDERS: ADMIT Advanced Practice Midwife; ATTEND Advanced Practice Midwife
PROC: 3E0P7GC Introduction of Other Therapeutic Substance into Female Reproductive, Via Natural or Artificial Opening (ICD-10-PCS; 2020-11-29)
PROC: 10E0XZZ Delivery of Products of Conception, External Approach (ICD-10-PCS; principal; 2020-11-30)
DX: O10.02 Pre-existing essential hypertension complicating childbirth (principal); O99.214 Obesity complicating childbirth; E66.9 Obesity, unspecified; Z3A.37 37 weeks gestation of pregnancy; Z37.0 Single live birth

== ENCOUNTER → 2020-12-21 | Outpatient (CLI) | payer SELFPAY ==
[~2020-12-21] MED LIST changes: +LABE20TAB PO
== END ==
LOC: M LABSMTC 10:48
PROVIDERS: ATTEND Pediatrics
DX: Z20.822 Contact with and (suspected) exposure to COVID-19 (principal)

== ENCOUNTER → 2021-04-17 | Outpatient (REF) | payer BC, MEDICAID | LOC: M SFHCWAGY 08:36 | PROVIDERS: ATTEND Advanced Practice Midwife | DX: Z12.4 Encounter for screening for malignant neoplasm of cervix (principal); R87.610 Atypical squamous cells of undetermined significance on cytologic smear of cervix (ASC-US) | CPT/HCPCS: 87624; G0123 ==

== ENCOUNTER → 2021-05-03 | Outpatient (CLI) | payer BC, MEDICAID ==
--- NOTE | 2021-05-03 16:03 | REP ---
INDICATION: RIGHT ADNEXAL TENDERNESS. COMPARISON: None. TECHNIQUE: Transvesical and transvaginal scanning FINDINGS: The uterus measures 7.8 x 3.4 x 4.9 cm. The parenchymal echo pattern is within normal limits. The endometrial echo complex is smooth and unremarkable appearing measuring 5 mm in its greatest thickness. The right ovary measures 2.3 x 2 x 1.9 cm and is within normal limits with an RI 0.67. Left ovary measures 2.3 x 1.7 x 2 cm and is within normal limits with an RI 0.54. Urinary bladder measures 4 x 3 x 6 cm. IMPRESSION: Within normal limits <Electronically signed by Nelson Black > 05/03/21 4205
== END ==
LOC: M WHC 14:29
PROVIDERS: ATTEND Advanced Practice Midwife
DX: R10.2 Pelvic and perineal pain (principal)

== ENCOUNTER 2021-05-18 10:13 | Emergency (ER) | payer BC, MEDICAID ==
[~2021-05-18] VITALS: Ht 167.6 cm; Wt 95.3 kg
[2021-05-18 13:20] LABS: BASO # 0.1 10^3/uL (0.0-0.2); BASO % 0.7 % (0.0-1.0); EOS # 0.1 10^3/uL (0.0-0.5); EOS % 1.1 % (0.0-3.0); HEMATOCRIT 40.9 % (36.0-47.0); HEMOGLOBIN 13.5 g/dl (12.0-15.5); LYMPH # 2.7 10^3/uL (1.5-5.0); LYMPH % 27.3 % (24.0-44.0); MEAN CORPUSCULAR HEMOGLOBIN 30.3 pg (27.0-33.0); MEAN CORPUSCULAR VOLUME 91.9 fl (80.0-96.0); MONO # 0.5 10^3/uL (0.0-0.8); MONO % 4.8 % (2.0-8.0); NEUTROPHILS # 6.5 10^3/uL (1.5-8.5); NEUTROPHILS % 65.9 % (36.0-66.0); PLATELET COUNT, AUTOMATED 318 10^3/uL (150-450); RED BLOOD COUNT 4.45 10^6/uL (4.00-5.40); WHITE BLOOD COUNT 9.8 10^3/uL (4.0-10.0)
[2021-05-18] MEDS ORDERED: NS 1,000 ML IV ONE (13:40)
--- NOTE | 2021-05-18 14:23 | REP ---
INDICATION: dizziness, headache COMPARISON: None. TECHNIQUE: Axial noncontrast images from the skull base to the vertex with coronal reformations. This CT examination was performed using the following dose reduction techniques: Automated exposure control, adjustment of mA and/or kv according to the patient's size, and use of iterative reconstruction technique. FINDINGS: The ventricles, sulci, and cisterns are normal in position and appearance. Barnett-white differentiation is maintained. No acute intracranial hemorrhage, mass/mass effect, pathology or trauma/injury. No evidence for acute infarction. No extra-axial fluid collection. Calvarium is intact. Paranasal sinuses and mastoid air cells are clear. IMPRESSION: Normal noncontrast head CT. No evidence for acute intracranial pathology or trauma/injury. <Electronically signed by Shahbaz Mckeon > 05/18/21 2616
[2021-05-18 14:29] LABS: CK-MB VALUE MASS 1.5 NG/ML (<3.6); CPK CREATINE PHOSPHOKINASE 103 U/L (26-192); FREE T4 0.88 NG/DL (0.76-1.46); MB/CK RELATIVE INDEX 1.46 (< OR =4); TROPONIN I < 0.02 NG/ML (< 0.10)
[2021-05-18 16:30] VITALS: BP 121/77
--- NOTE | 2021-05-18 21:23 | ECGEPIP ---
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
== END 2021-05-18 16:39 | disposition home or self-care (01) ==
LOC: M ED 10:13
DX: G43.909 Migraine, unspecified, not intractable, without status migrainosus (principal); R11.0 Nausea; R42 Dizziness and giddiness; R00.1 Bradycardia, unspecified; F32.9 Major depressive disorder, single episode, unspecified; Z88.2 Allergy status to sulfonamides; Z79.899 Other long term (current) drug therapy

== ENCOUNTER → 2021-05-23 | Outpatient (REF) ==
[~2021-05-23] MED LIST changes: +DOXY-350 PO; +MEDR4PAK PO; +TESS100C PO
== END ==
LOC: M LABSMTC 09:58
PROVIDERS: ATTEND Pediatrics
DX: Z20.822 Contact with and (suspected) exposure to COVID-19 (principal)

== ENCOUNTER → 2021-07-13 | Outpatient (REF) ==
[~2021-07-13] MED LIST changes: -DOXY-350 PO; -MEDR4PAK PO; -TESS100C PO
== END ==
LOC: M LABSMTC 09:49
PROVIDERS: ATTEND Pediatrics
DX: Z02.89 Encounter for other administrative examinations (principal)

== ENCOUNTER → 2021-07-26 | Outpatient (REF) | payer BC, MEDICAID ==
[2021-07-26 19:47] LABS: RSV AMPLIFICATION NEGATIVE (NEGATIVE)
== END ==
LOC: M LAB REF 16:40
PROVIDERS: ATTEND Physician Assistant
DX: R05.9 Cough, unspecified (principal)

== ENCOUNTER 2021-07-30 06:01 | Emergency (ER) | payer BC, MEDICAID ==
[~2021-07-30] VITALS: Ht 167.6 cm; Wt 90.6 kg
[2021-07-30] MEDS ORDERED: DOXY-350 PO (06:07)
--- OUTSIDE RECORDS SUMMARY | 2021-07-30 06:56 | CCD ---
Author Author [facility] Organization [facility] Address Unknown Phone Unavailable Care Team Providers Care Home Energy Auditor Name Role Phone Jose Alberto Linares Unavailable PROBLEMS Type Condition ICD9-CM Code [id number] Code Onset Dates Condition S tatus W/U Status Risk SNOMED Code Notes Problem Generalized anxiety disorder F41.1 Active confirme d 38158579 Problem Hypertriglyceridemia E78.1 Active confirmed 096766826 Problem Smoking F17.200 Active confirmed 74317420 Problem Essential hypertension I10 Active confirmed 10598519 ALLERGIES Allergen (clinical drug ingredient) Drug/Non Drug Allergy do cumented on EMR Reaction Allergy Type Onset Date Status Sulfa (for allergy use only) Hives Drug Allergy Active ENCOUNTERS from 1990 to 2021-07-03 Encounter Location Date Provider Diagnosis [facility] [address] [phone] [place] [address] Jun, Jose Alberto Linares IMMUNIZATIONS Vaccine Route Administration Date Status TDAP 0.5mL (Boostrix) IM Intramuscular Oct 27, 2020 Administe red SOCIAL HISTORY Tobacco Use: Social History Observation Description Date Details (start date - stop date) Current Smoker Sex Assigned At : Social History Observation Description Sex Assigned At Unknown Education: Question Answer Notes Level of Education: Finished High School Language: Question Answer Notes Languages spoken: South African Adventist: Question Answer Notes Adventist 33 None Alcohol Screening: Question Answer Notes Did you have a drink containing alcohol in the past year? No Points 0 Interpretation Negative Tobacco Use: Question Answer Notes Are you a: current smoker Smoking Cessation Information Given 01/15/2019 Patient counseled on the dangers of tobacco use and urged to quit: 01/18/2020 How many cigarettes a day do you smoke? 5 or less REASON FOR REFERRAL No Information VITAL SIGNS No information MEDICATIONS Medication SIG (Take, Route, Frequency, Duration) Notes Start Da te End Date Status ELSIE 3-0.02 MG 1 tablet Orally Once a day for 28 day(s) Jun, Active Amlodipine Besylate 10 MG 1 tablet Orally Once a day for 90 day( s) Dec, Active Sertraline HCl 25 mg 1 tablet Orally Once a day for 90 day(s) January, Active Suzanne FE 10/11 1-20 MG-MCG 1 tablet Orally Once a day for 84 day s Mar, Active PROCEDURES No Information RESULTS No Results REASON FOR VISIT BC change MEDICAL (GENERAL) HISTORY Type Description Date Medical History Chronic HTN Medical History Anxiety Surgical History wisdom tooth removal Surgical History D&C after miscarriage 2018 Hospitalization History Childbirth Goals Section No Information Health Concerns No Information MEDICAL EQUIPMENT No Information MENTAL STATUS No Information FUNCTIONAL STATUS No Information ASSESSMENTS No Information PLAN OF TREATMENT Medication Medication Name Sig Start Date Stop Date ELSIE 3-0.02 MG 1 tablet Orally Once a day for 28 day(s) Jun, Insurance Providers Payer Name Payer Address Payer Phone Insured Name Patient Relati onship to Insured Coverage Start Date Coverage End Date [employer]IN PPO [phone] [facility] [place] [id number] MARCELA CAMARA MEDICAID [facility] [address] [facility] [id number] MARCELA CAMARA
--- OUTSIDE RECORDS SUMMARY | 2021-07-30 06:56 | CCD ---
Author Author [facility] Organization [facility] Address Unknown Phone Unavailable Care Team Providers Care Recruiter Account Manager Name Role Phone Pham Baum Unavailable PROBLEMS Type Condition ICD9-CM Code [id number] Code Onset Dates Condition S tatus W/U Status Risk SNOMED Code Notes Problem Generalized anxiety disorder F41.1 Active confirme d 21538541 Problem Hypertriglyceridemia E78.1 Active confirmed 326235469 Problem Smoking F17.200 Active confirmed 49305597 Problem Essential hypertension I10 Active confirmed 76064679 ALLERGIES Allergen (clinical drug ingredient) Drug/Non Drug Allergy do cumented on EMR Reaction Allergy Type Onset Date Status Sulfasalazine Sulfa Antibiotics Hives Drug Allergy Ac tive ENCOUNTERS from 1990 to 2021-07-09 Encounter Location Date Provider Diagnosis [facility] Resident [address] [phone] [place] [address] Apr, Pham Baum Essential hypertensi on I10 ; Generalized anxiety disorder F41.1 and Smoking F17.200 IMMUNIZATIONS Vaccine Route Administration Date Status TDAP 0.5mL (Boostrix) IM Intramuscular Oct 27, 2020 Administe red SOCIAL HISTORY Tobacco Use: Social History Observation Description Date Details (start date - stop date) Current Smoker Sex Assigned At : Social History Observation Description Sex Assigned At Unknown Education: Question Answer Notes Level of Education: Finished High School Language: Question Answer Notes Languages spoken: Chinese Orthodox: Question Answer Notes Orthodox 33 None Alcohol Screening: Question Answer Notes [...] REASON FOR REFERRAL No Information VITAL SIGNS Weight 214 lbs Apr, Weight-kg 97.07 kg Apr, Height 66 in Apr, BMI 34.54 kg/m2 Apr, Heart Rate 78 /min Apr, Respiratory Rate 18 /min Apr, Temperature 98.0 degrees Fahrenheit Apr, Oximetry 97 Apr, Blood pressure systolic 118 mm Hg Apr, Blood pressure diastolic 80 mm Hg Apr, MEDICATIONS Medication SIG (Take, Route, Frequency, Duration) [...] Information RESULTS No Results REASON FOR VISIT follow up - was [facility] MEDICAL (GENERAL) HISTORY Type Description Date Medical History Chronic HTN Medical History Anxiety Surgical History wisdom tooth removal Surgical History D&C after miscarriage 2018 Hospitalization History Childbirth Goals Section No Information Health Concerns No Information MEDICAL EQUIPMENT No Information MENTAL STATUS No Information FUNCTIONAL STATUS No Information ASSESSMENTS Encounter Date Diagnosis Assessment Notes Treatment Notes Treatm ent Clinical Notes Apr, Essential hypertension (ICD-10 - I10) Well controlled in the office, continue current medications. Discussed monitoring BP at home and keeping a log for her next appointment. Will check BMP today. Apr, Generalized anxiety disorder (ICD-10 - F41.1) Well controlled per patient. Continue current medication. Apr, Smoking (ICD-10 - F17.200) Discussed smoking cessation. Patient agrees to work on cutting back but does not feel ready to quit completely yet. PLAN OF TREATMENT Medication Medication Name Sig Start Date Stop Date ELSIE 3-0.02 MG 1 tablet Orally Once a day for 28 day(s) Jun, Treatment Notes Assessment Notes Clinical Notes Essential hypertension Well controlled i n the office, continue current medications. Discussed monitoring BP at home and keeping a log for her next appointment. Will check BMP today. Generalized anxiety disorder Well contro lled per patient. Continue current medication. Smoking Discussed smoking ce ssation. Patient agrees to work on cutting back but does not feel ready to quit completely yet. Treatment Notes Test Name Order Date Basic Metabolic Profile (BMP) 2021-04-30 Next Appt Details 6 Months Reason: Insurance Providers Payer Name Payer Address Payer Phone Insured Name Patient Relati onship to Insured Coverage Start Date Coverage End Date MEDICAID [employer] [address] [facility] [id number] MARCELA CAMARA self [facility] [phone] [facility] [employer] [facility] [place] [facility] [id number] MARCELA CAMARA self
--- OUTSIDE RECORDS SUMMARY | 2021-07-30 06:56 | CCD ---
Author Author [facility] Organization [facility] Address Unknown Phone Unavailable Care Team Providers Care Ship'S Electronic Warfare Officer Name Role Phone Pham Baum Unavailable PROBLEMS Type Condition ICD9-CM Code [id number] Code Onset Dates Condition S tatus W/U Status Risk SNOMED Code Notes Problem Generalized anxiety disorder F41.1 Active confirme d 62674797 Problem Hypertriglyceridemia E78.1 Active confirmed 811068503 Problem Smoking F17.200 Active confirmed 11710091 Problem Essential hypertension I10 Active confirmed 70936689 ALLERGIES Allergen (clinical drug ingredient) Drug/Non Drug Allergy do cumented on EMR Reaction Allergy Type Onset Date Status Sulfa (for allergy use only) Hives Drug Allergy Active ENCOUNTERS from 1990 to 2021-06-29 Encounter Location Date Provider Diagnosis [facility] Resident [address] [phone] [place] [address] Jun, Pham Baum IMMUNIZATIONS Vaccine Route Administration Date Status TDAP 0.5mL (Boostrix) IM Intramuscular Oct 27, 2020 Administe red SOCIAL HISTORY Tobacco Use: Social History Observation Description Date Details (start date - stop date) Current Smoker Sex Assigned At : Social History Observation Description Sex Assigned At Unknown Education: Question Answer Notes Level of Education: Finished High School Language: Question Answer Notes Languages spoken: Lao Hoahaoism: Question Answer Notes Hoahaoism 33 None Alcohol Screening: Question Answer Notes [...] Notes Start Da te End Date Status Amlodipine Besylate 10 MG 1 tablet Orally Once a day for 90 day( s) Dec, Active Suzanne FE 10/11 1-20 MG-MCG 1 tablet Orally Once a day for 84 day s Mar, Active Sertraline HCl 25 mg 1 tablet Orally Once a day for 90 day(s) January, Active PROCEDURES No Information RESULTS No Results REASON FOR VISIT no showed MEDICAL (GENERAL) HISTORY Type Description Date Medical History Chronic HTN Medical History Anxiety Surgical History wisdom tooth removal Surgical History D&C after miscarriage 2018 Hospitalization History Childbirth Goals Section No Information Health Concerns No Information MEDICAL EQUIPMENT No Information MENTAL STATUS No Information FUNCTIONAL STATUS No Information ASSESSMENTS No Information PLAN OF TREATMENT No Information Insurance Providers Payer Name Payer Address Payer Phone Insured Name Patient Relati onship to Insured Coverage Start Date Coverage End Date MEDICAID [employer] [address] [facility] [id number] MARCEL[place] [facility] [place] [phone] [facility] [employer] PA R[facility] [id number] MARCELA CAMARA
--- OUTSIDE RECORDS SUMMARY | 2021-07-30 06:56 | CCD ---
Author Author [facility] Organization [facility] Address Unknown Phone Unavailable Care Team Providers Care Escrow Assistant Name Role Phone Pham Baum Unavailable PROBLEMS Type Condition ICD9-CM Code [id number] Code Onset Dates Condition S tatus W/U Status Risk SNOMED Code Notes Problem Generalized anxiety disorder F41.1 Active confirme d 94966195 Problem Hypertriglyceridemia E78.1 Active confirmed 063192456 Problem Smoking F17.200 Active confirmed 80774787 Problem Essential hypertension I10 Active confirmed 64544821 ALLERGIES Allergen (clinical drug ingredient) Drug/Non Drug Allergy do cumented on EMR Reaction Allergy Type Onset Date Status Sulfa (for allergy use only) Hives Drug Allergy Active ENCOUNTERS from 1990 to 2021-06-27 Encounter Location Date Provider Diagnosis [address] [phone] [place] [address] May, Phamerlinda Baum IMMUNIZATIONS Vaccine Route Administration Date Status TDAP 0.5mL (Boostrix) IM Intramuscular Oct 27, 2020 Administe red SOCIAL HISTORY Tobacco Use: Social History Observation Description Date Details (start date - stop date) Current Smoker Sex Assigned At : Social History Observation Description Sex Assigned At Unknown Education: Question Answer Notes Level of Education: Finished High School Language: Question Answer Notes Languages spoken: Sinhala Buddhist: Question Answer Notes Buddhist 33 None Alcohol Screening: Question Answer Notes [...] Information RESULTS No Results REASON FOR VISIT questions MEDICAL (GENERAL) HISTORY Type Description Date Medical History Chronic HTN Medical History Anxiety Surgical History wisdom tooth removal Surgical History D&C after miscarriage 2018 Hospitalization History Childbirth Goals Section No Information Health Concerns No Information MEDICAL EQUIPMENT No Information MENTAL STATUS No Information FUNCTIONAL STATUS No Information ASSESSMENTS No Information PLAN OF TREATMENT Next Appt Details Provider Name:Pham Baum, 2020-1 008 02:30:00 PM, [address] [facility], , [place], [address], Insurance Providers Payer Name Payer Address Payer Phone Insured Name Patient Relati onship to Insured Coverage Start Date Coverage End Date [employer] PPO [phone] [facility] [employer] [facility] [place] [address] MARCELA CAMARA MEDICAID [facility] [address] [facility] [address] MARCELA CAMARA
--- OUTSIDE RECORDS SUMMARY | 2021-07-30 06:56 | CCD ---
Author Author [facility] Organization [facility] Address Unknown Phone Unavailable Care Team Providers Care Environmental Officer Name Role Phone Pham Baum Unavailable PROBLEMS Type Condition ICD9-CM Code [id number] Code Onset Dates Condition S tatus W/U Status Risk SNOMED Code Notes Problem Generalized anxiety disorder F41.1 Active confirme d 12699887 Problem Hypertriglyceridemia E78.1 Active confirmed 525553916 Problem Smoking F17.200 Active confirmed 94724570 Problem Essential hypertension I10 Active confirmed 11603351 ALLERGIES Allergen (clinical drug ingredient) Drug/Non Drug Allergy do cumented on EMR Reaction Allergy Type Onset Date Status Sulfa (for allergy use only) Hives Drug Allergy Active ENCOUNTERS from 1990 to 2021-05-22 Encounter Location Date Provider Diagnosis [address] [phone] [place] [address] Apr, Pham Reaeyad IMMUNIZATIONS Vaccine Route Administration Date Status TDAP 0.5mL (Boostrix) IM Intramuscular Oct 27, 2020 Administe red SOCIAL HISTORY Tobacco Use: Social History Observation Description Date Details (start date - stop date) Current Smoker Sex Assigned At : Social History Observation Description Sex Assigned At Unknown Education: Question Answer Notes Level of Education: Finished High School Language: Question Answer Notes Languages spoken: Greenlandic Christianity: Question Answer Notes Christianity 33 None Alcohol Screening: Question Answer Notes [...] Notes Start Da te End Date Status Labetalol HCl 200 MG 1 tablet Orally Twice a day for 30 day(s) Oct, Not-Taking Suzanne FE 1/20 1-20 MG-MCG TAKE ONE TABLET BY MOUTH ONCE A DAY Oral for 84 Not-Taking Amlodipine Besylate 10 MG 1 tablet Orally Once a day for 90 day( s) Dec, Active Sertraline HCl 25 mg 1 tablet Orally Once a day for 90 day(s) January, Active Suzanne FE 1/20 1-20 MG-MCG 1 tablet Orally Once a day for 84 day s Mar, Active PROCEDURES No Information RESULTS No Results REASON FOR VISIT high blood pressure dizziness MEDICAL (GENERAL) HISTORY Type Description Date Medical History Chronic HTN Medical History Anxiety Surgical History wisdom tooth removal Surgical History D&C after miscarriage 2017 Hospitalization History Childbirth Goals Section No Information Health Concerns No Information MEDICAL EQUIPMENT No Information MENTAL STATUS No Information FUNCTIONAL STATUS No Information ASSESSMENTS No Information PLAN OF TREATMENT Next Appt Details Provider Name:Pham Baum, 2020-09 008 02:30:00 PM, [address] [facility], , [place], [address], Insurance Providers Payer Name Payer Address Payer Phone Insured Name Patient Relati onship to Insured Coverage Start Date Coverage End Date MEDICAID [employer] [address] [facility] [address] MARCELA CAMARA self BCBS [place] P[place] [phone] [facility] [place] [address] MARCELA CAMARA
--- OUTSIDE RECORDS SUMMARY | 2021-07-30 06:56 | CCD ---
Author Author [facility] Organization [facility] Address Unknown Phone Unavailable Support Name Relationship Address Phone JESSE FLORES Next Of Kin [address] [place] [address] Davonte CAMARA Next Of [facility] [address] [place] [address] [place] Next Of Kin [address] [place] [address] [facility] Next Of Kin [address] [place] [address] AMANDA-[place] [address] HOLLI CAMARA ECON [address] [place] [address] Unavailable Re-disclosure Warning The records that you are about to access may contain information from federally-assisted alcohol or drug abuse programs. If such information is present, then the following federally mandated warning applies: This information has been disclosed to you from records protected by federal confidentiality rules (42 CFR part 2). The federal rules prohibit you from making any further disclosure of this information unless further disclosure is expressly permitted by the written consent of the person to whom it pertains or as otherwise permitted by 42 CFR part 2. A general authorization for the release of medical or other information is NOT sufficient for this purpose. The Federal rules restrict any use of the information to criminally investigate or prosecute any alcohol or drug abuse patient.The records that you are about to access may contain highly sensitive health information, the redisclosure of which is protected by Article 27-F of the [facility] Public Health law. If you continue you may have access to information: Regarding HIV / AIDS; Provided by facilities licensed or operated by the [facility] Office of Mental Health; or Provided by the [facility] Office for People With Developmental Disabilities. If such information is present, then the following [facility] mandated warning applies: This information has been disclosed to you from confidential records which are protected by state law. State law prohibits you from making any further disclosure of this information without the specific written consent of the person to whom it pertains, or as otherwise permitted by law. Any unauthorized further disclosure in violation of state law may result in a fine or long-term sentence or both. A general authorization for the release of medical or other information is NOT sufficient authorization for further disc losure. Family History Family Member Name Family Member Gender Family Member Status Date o f Status Description Data Source(s) Unknown Unknown Problem MEDENT ([facility]) Unknown Unknown Problem MEDENT ([facility]) Encounters Encounter Providers Location Date Indications Data Source(s ) Unknown [address] [facility] [place] [address] 07/03/2021 12:00:00 AM EDT eCW1 ([facility]) Unknown [address] [facility] [place] [address] 06/29/2021 12:00:00 AM EDT eCW1 ([facility]) Unknown [address] [facility] [place] [address] 06/11/2021 12:00:00 AM EDT eCW1 ([facility]) Unknown [address] [facility] [place] [address] 05/23/2021 12:00:00 AM EDT eCW1 ([facility]) Unknown [address] [facility] [place] [address] 05/18/2021 12:00:00 AM EDT eCW1 ([facility]) Outpatient [address] [facility] [place] [address] 04/30/2021 12:00:00 AM EDT eCW1 ([facility]) Unknown [address] [facility] [place] [address] 04/20/2021 12:00:00 AM EDT eCW1 ([facility]) Outpatient [address] [facility] [place] [address] 04/17/2021 12:00:00 AM EDT eCW1 ([facility]) Unknown [address] [facility] [place] [address] 02/28/2021 12:00:00 AM EDT eCW1 ([facility]) (WC ESTOB) WCenter Est OB [address] [place] [address] 01/12/2021 12:00:00 AM EDT eCW1 ([facility]) (WC COBMD) WCenter Complicated OB for MD Only [address] [place] [address] 11/23/2020 12:00:00 AM EST eCW1 ([facility]) (WC COB) WCenter Complicated OB [address] [place] [address] 11/15/2020 12:00:00 AM EST eCW1 ([facility]) (WC ESTOB) WCenter Est OB [address] [place] [address] 11/08/2020 12:00:00 AM EST eCW1 ([facility]) (WC ESTOB) WCenter Est OB [address] [place] [address] 11/01/2020 12:00:00 AM EST eCW1 ([facility]) (WC ESTOB) WCenter Est OB [address] [place] [address] 10/27/2020 12:00:00 AM EST eCW1 ([facility]) (WC ESTOB) WCenter Est OB [address] [place] [address] 10/24/2020 12:00:00 AM EST eCW1 ([facility]) (WC NV) WCenter Nurse Visit [address] [place] [address] 10/18/2020 12:00:00 AM EST eCW1 ([facility]) (WC COB) WCenter Complicated OB [address] [place] [address] 10/16/2020 12:00:00 AM EST eCW1 ([facility]) Unknown [address] [facility] [place] [address] 10/10/2020 12:00:00 AM EST eCW1 ([facility]) (WC ESTOB) WCenter Est OB [address] [place] [address] 09/29/2020 12:00:00 AM EST eCW1 ([facility]) Unknown [address] [facility] [place] [address] 09/25/2020 12:00:00 AM EST eCW1 ([facility]) (WC ESTOB) WCenter Est OB [address] [place] [address] 09/08/2020 12:00:00 AM EST eCW1 ([facility]) (WC ESTOB) WCenter Est OB [address] [place] [address] 08/30/2020 12:00:00 AM EST eCW1 ([facility]) Unknown [address] [facility] [place] [address] 08/25/2020 12:00:00 AM EST eCW1 ([facility]) Unknown [address] [facility] [place] [address] 08/24/2020 12:00:00 AM EST eCW1 ([facility]) (WC ESTOB) WCenter Est OB [address] [place] [address] 08/02/2020 12:00:00 AM EST eCW1 ([facility]) (WC ESTOB) enter Est OB [address] [place] [address] 07/05/2020 12:00:00 AM EDT eCW1 ([facility]) Immunizations Vaccine Date Status Description Data Source(s) COVID-19 VACCINE Moderna 07/10/2021 12:00:00 AM EDT completed [facility] Vaccine Series Complete: YESThis Data wa s Submitted to [facility]. COVID-19 VACCINE Moderna 06/12/2021 12:00:00 AM EDT completed [facility] Vaccine Series Complete: NOThis Data was Submitted to [facility]. Tdap 10/27/2020 04:29:00 PM EST completed e CW1 ([facility]) Tdap 10/27/2020 04:29:00 PM EST completed e CW1 ([facility]) Tdap 10/27/2020 04:29:00 PM EST completed e CW1 ([facility]) Tdap 10/27/2020 04:29:00 PM EST completed e CW1 ([facility]) Tdap 10/27/2020 04:29:00 PM EST completed e CW1 ([facility]) Tdap 10/27/2020 04:29:00 PM EST completed e CW1 ([facility]) Tdap 10/27/2020 04:29:00 PM EST completed e CW1 ([facility]) Tdap 10/27/2020 04:29:00 PM EST completed e CW1 ([facility]) Tdap 10/27/2020 04:29:00 PM EST completed e CW1 ([facility]) Tdap 10/27/2020 04:29:00 PM EST completed e CW1 ([facility]) Tdap 10/27/2020 04:29:00 PM EST completed e CW1 ([facility]) Tdap 10/27/2020 04:29:00 PM EST completed e CW1 ([facility]) Tdap 10/27/2020 04:29:00 PM EST completed e CW1 ([facility]) Tdap 10/27/2020 04:29:00 PM EST completed e CW1 ([facility]) Tdap 10/27/2020 04:29:00 PM EST completed e CW1 ([facility]) Tdap 10/27/2020 04:29:00 PM EST completed e CW1 ([facility]) Medications Medication Brand Name Start Date Product Form Dose Route Admi nistrative Instructions Pharmacy Instructions Status Indications Reaction Description Data Source(s) ELSIE 3-0.02 MG ELSIE 3-0.02 MG 07/03/2021 12:00:00 AM EDT 1.0 {tabl et} active ELSIE 3-0.02 MG eCW1 ([facility]) ELSIE 3-0.02 MG ELSIE 3-0.02 MG 07/03/2021 12:00:00 AM EDT 1.0 {tabl et} active ELSIE 3-0.02 MG eCW1 ([facility]) Suzanne FE 1/20 1-20 MG-MCG Suzanne FE 1/20 1-20 MG-MCG 2020 12:00:00 AM EDT 1.0 {tablet} active Suzanne FE 1 /20 1-20 MG-MCG eCW1 ([facility]) Suzanne FE 1/20 1-20 MG-MCG Suzanne FE 1/20 1-20 MG-MCG 2020 12:00:00 AM EDT 1.0 {tablet} active Suzanne FE 1 /20 1-20 MG-MCG eCW1 ([facility]) Suzanne FE 1/20 1-20 MG-MCG Suzanne FE 1/20 1-20 MG-MCG 2020 12:00:00 AM EDT 1.0 {tablet} active Suzanne FE 1 /20 1-20 MG-MCG eCW1 ([facility]) Suzanne FE 1/20 1-20 MG-MCG Suzanne FE 1/20 1-20 MG-MCG 2020 12:00:00 AM EDT 1.0 {tablet} active Suzanne FE 1 /20 1-20 MG-MCG eCW1 ([facility]) Suzanne FE 1/20 1-20 MG-MCG Suzanne FE 1/20 1-20 MG-MCG 2020 12:00:00 AM EDT 1.0 {tablet} active Suzanne FE 1 /20 1-20 MG-MCG eCW1 ([facility]) Suzanne FE 1/20 1-20 MG-MCG Suzanne FE 1/20 1-20 MG-MCG 2020 12:00:00 AM EDT 1.0 {tablet} active Suzanne FE 1 /20 1-20 MG-MCG eCW1 ([facility]) Suzanne FE 1/20 1-20 MG-MCG Suzanne FE 1/20 1-20 MG-MCG 2020 12:00:00 AM EDT 1.0 {tablet} active Suzanne FE 1 /20 1-20 MG-MCG eCW1 ([facility]) Suzanne FE 1/20 1-20 MG-MCG Suzanne FE 1/20 1-20 MG-MCG 2020 12:00:00 AM EDT 1.0 {tablet} active Suzanne FE 1 /20 1-20 MG-MCG eCW1 ([facility]) Microgestin FE 1/20 1-20 MG-MCG Microgestin FE 1/20 1-20 MG- MCG 01/12/2021 12:00:00 AM EDT 1.0 {tablet} active Mi crogestin FE 1/20 1-20 MG-MCG eCW1 ([facility]) Microgestin FE 1/20 1-20 MG-MCG Microgestin FE 1/20 1-20 MG- MCG 01/12/2021 12:00:00 AM EDT 1.0 {tablet} active Mi crogestin FE 1/20 1-20 MG-MCG eCW1 ([facility]) Labetalol hydrochloride 200 MG Oral Tablet Labetalol H Cl 200 MG Labetalol HCl 200 MG 10/24/2020 12:00:00 AM EST 1.0 {tablet} activ e Labetalol HCl 200 MG eCW1 ([facility]) Labetalol hydrochloride 200 MG Oral Tablet Labetalol H Cl 200 MG Labetalol HCl 200 MG 10/24/2020 12:00:00 AM EST 1.0 {tablet} suspe nded Labetalol HCl 200 MG eCW1 ([facility]) Labetalol hydrochloride 200 MG Oral Tablet Labetalol H Cl 200 MG Labetalol HCl 200 MG 10/24/2020 12:00:00 AM EST 1.0 {tablet} activ e Labetalol HCl 200 MG eCW1 ([facility]) Labetalol hydrochloride 200 MG Oral Tablet Labetalol H Cl 200 MG Labetalol HCl 200 MG 10/24/2020 12:00:00 AM EST 1.0 {tablet} activ e Labetalol HCl 200 MG eCW1 ([facility]) Labetalol hydrochloride 200 MG Oral Tablet Labetalol H Cl 200 MG Labetalol HCl 200 MG 10/24/2020 12:00:00 AM EST 1.0 {tablet} activ e Labetalol HCl 200 MG eCW1 ([facility]) Labetalol hydrochloride 200 MG Oral Tablet Labetalol H Cl 200 MG Labetalol HCl 200 MG 10/24/2020 12:00:00 AM EST 1.0 {tablet} activ e Labetalol HCl 200 MG eCW1 ([facility]) Labetalol hydrochloride 200 MG Oral Tablet Labetalol H Cl 200 MG Labetalol HCl 200 MG 10/24/2020 12:00:00 AM EST 1.0 {tablet} activ e Labetalol HCl 200 MG eCW1 ([facility]) Labetalol hydrochloride 200 MG Oral Tablet Labetalol H Cl 200 MG Labetalol HCl 200 MG 10/24/2020 12:00:00 AM EST 1.0 {tablet} activ e Labetalol HCl 200 MG eCW1 ([facility]) Labetalol hydrochloride 200 MG Oral Tablet Labetalol H Cl 200 MG Labetalol HCl 200 MG 10/24/2020 12:00:00 AM EST 1.0 {tablet} activ e Labetalol HCl 200 MG eCW1 ([facility]) Labetalol hydrochloride 200 MG Oral Tablet Labetalol H Cl 200 MG Labetalol HCl 200 MG 10/24/2020 12:00:00 AM EST 1.0 {tablet} activ e Labetalol HCl 200 MG eCW1 ([facility]) Labetalol hydrochloride 200 MG Oral Tablet Labetalol H Cl 200 MG Labetalol HCl 200 MG 10/24/2020 12:00:00 AM EST 1.0 {tablet} activ e Labetalol HCl 200 MG eCW1 ([facility]) Labetalol hydrochloride 200 MG Oral Tablet Labetalol H Cl 200 MG Labetalol HCl 200 MG 10/24/2020 12:00:00 AM EST 1.0 {tablet} suspe nded Labetalol HCl 200 MG eCW1 ([facility]) Insurance Providers Payer name Policy type / Coverage type Policy ID Covered democrat ID Covered democrat's relationship to gaspar Policy Gaspar Plan Information [employer] Commercial [id number] Self BCBS [place] P[place] 302/307 [id number] SP [id number] [place] 306/806 [id number] SP [id number] SELF PAY ONLY [id number] SP [id number] [place] [id number] SP [id number] MEDICAID M [id number] S [id number] [employer] BCBS B [id number] S VYS [id number] [place] 306/806 [id number] SP [id number] [place] 306/806 [id number] SP [id number] BCBS [place] PPO 302/307 [id number] SP [id number] [facility] [id number] SP [id number] ANSI-Commercial [id number] ANSI-Commercial [id number] ANSI-Commercial [id number] ANSI-Commercial [id number] ANSI-Commercial [id number] Medicaid [place] Med[place] Part B [id number] Self Medicaid [place] Med[place] [id number] Self [id number] [facility] (O) 25 [id number] Self [id number] Medicaid [place] Medigap Part [place] [id number] Self [id number] [facility] (O) 25 [id number] Self [id number] Medicaid [place] Med[place]ap [place] [id number] Self [id number] [facility] (O) 25 [id number] Self [id number] MEDICAID [id number] SP [id number] Medicaid [place] Medigap Part [place] [id number] Self [id number] [facility] Maintenance Organization (O) 25 [id number] Self [id number] MEDICAID [id number] SP [id number] BCBS/Blue Card Commercial [id number] Self Medicaid [place] Medigap Part B [id number] Self [facility] Maintenance Organization (O) [id number] Self [place] [id number] SP [id number] BCBS [place] 302/307 [id number] SP [id number] BCBS [place] 302/307 [id number] SP [id number] BCBS [place] 302/307 [id number] SP [id number] Problems, Conditions, and Diagnoses Code Display Name Description Problem Type Effective Dates Data Source(s) O10.913 Unspecified pre-existing hyp ertension complicating , third trimester Pre-existing hypertension affecting in third trimester Problem 10/27/2020 12:00:00 AM EST eCW1 ([facility]) O99.213 Maternal obesity complicatin g , childbirth and the puerperium, antepartum Obesity affecting in third trimester Problem 10/16/2020 12:00:00 AM EST eCW1 ([facility]) I10 Elevated blood pressure Elevated blood pressure Proble m 10/16/2020 12:00:00 AM EST eCW1 ([facility]) O10.013 Pre-existing essential hyper tension complicating , third trimester Benign essential hypertension affecting in t hird trimester Problem 10/16/2020 12:00:00 AM EST eCW1 ([facility]) O10.013 [id number] Essential hypertension affecting in third trimester Problem 09/28/2020 12:00:00 AM EST eCW1 ([facility]) O10.012 Pre-existing essential hyper tension complicating , second trimester Essential hypertension affecting in second t rimester Problem 09/08/2020 12:00:00 AM EST eCW1 ([facility]) E66.9 Obesity Obesity Problem 08/30/2020 12:00:00 AM ES T eCW1 ([facility]) O10.919 Benign essential hypertension in obstetr ic context Chronic hypertension affecting Problem 08/25/2020 12:00:00 AM EST eCW1 ([facility]) O10.912 Unspecified pre-existing hyp ertension complicating , second trimester Pre-existing hypertension affecting in secon d trimester Problem 08/02/2020 12:00:00 AM EST eCW1 ([facility]) Z34.80 care Supervision of other normal P eli 07/05/2020 12:00:00 AM EDT eCW1 ([facility]) Surgeries/Procedures Procedure Description Date Indications Data Source(s) NONSTRESS TEST 11/23/2020 12:00:00 AM EST eCW1 ([facility]) NONSTRESS TEST 11/08/2020 12:00:00 AM EST eCW1 ([facility]) NONSTRESS TEST 11/01/2020 12:00:00 AM EST eCW1 ([facility]) Immunization: Boostrix 0.5mL IM (TDAP) 10/27/2020 12:0 0:00 AM EST eCW1 ([facility]) Nurse Visit Blood Pressure Check 10/18/2020 12:00:00 A M EST eCW1 ([facility]) Results ID Date Data Source [id number] 07/26/2021 03:00:00 PM EDT [facility] Name Value Range Interpretation Code Description Data Adia rce(s) Supporting Document(s) SARS coronavirus 2 RNA [Presence] in Res piratory specimen by TARIK with probe detection NEGATIVE [facility] This lab was ordered by [facility] a nd reported by [facility]. ID Date Data Source [id number] 07/26/2021 12:54:00 PM EDT [facility] Name Value Range Interpretation Code Description Data Adia rce(s) Supporting Document(s) SARS coronavirus 2 RNA [Presence] in Res piratory specimen by TARIK with probe detection NEGATIVE [facility] This lab was ordered by [facility] a nd reported by [facility]. ID Date Data Source [id number] 07/13/2021 10:25:00 AM EDT [facility] Name Value Range Interpretation Code Description Data Adia rce(s) Supporting Document(s) SARS coronavirus 2 RNA [Presence] in Res piratory specimen by TARIK with probe detection NEGATIVE [facility] This lab was ordered by [facility] a nd reported by [facility]. ID Date Data Source [id number] 05/23/2021 10:55:00 AM EDT [facility] Name Value Range Interpretation Code Description Data Adia rce(s) Supporting Document(s) SARS-CoV-2 (COVID-19) RNA [Presence] in Respiratory specimen by TARIK with probe detection Not Detected [facility] This lab was ordered by [facility] and reported by [facility]. ID Date Data Source [id number] 12/21/2020 12:00:00 AM EDT [facility] Name Value Range Interpretation Code Description Data Adia rce(s) Supporting Document(s) SARS-CoV-2 (COVID-19) RNA [Presence] in Respiratory specimen by TARIK with probe detection Not Detected [facility] This lab was ordered by [facility] and reported by [employer] ID Date Data Source GROUP B STREP CULTURE 11/23/2020 12:00:00 AM EST eCW1 ([facility]) Name Value Range Interpretation Code Description Data Adia rce(s) Supporting Document(s) GROUP B STREP CULTURE eCW1 ([facility]) ID Date Data Source [id number] 11/13/2020 10:35:00 AM EST [facility] Name Value Range Interpretation Code Description Data Adia rce(s) Supporting Document(s) SARS-CoV-2 (COVID-19) RNA [Presence] in Respiratory specimen by TARIK with probe detection Not Detected [facility] This lab was ordered by [facility] and reported by [employer] ID Date Data Source [id number] 10/11/2020 11:05:00 AM EST [facility] Name Value Range Interpretation Code Description Data Adia rce(s) Supporting Document(s) SARS coronavirus 2 RNA Not Detected [facility] [place] This lab was ordered by [facility] and reported by [facility]. ID Date Data Source LIVER PROFILE 09/08/2020 12:00:00 AM EST eCW1 ([facility]) Name Value Range Interpretation Code Description Data Adia rce(s) Supporting Document(s) 86 45-117 ALKALINE PHOSPHATASE eCW1 (Critical access hospital) 6 7-37 AST/SGOT eCW1 ([facility]) 13 12-78 ALT/SGPT eCW1 ([facility]) 0.2 0.2-1.0 BILIRUBIN,TOTAL eCW1 ([facility]) < 0.1 0.0-0.2 BILIRUBIN,DIRECT eCW1 ([facility]) 6.3 6.4-8.2 TOTAL PROTEIN eCW1 ([facility]) 2.7 3.2-5.2 ALBUMIN eCW1 ([facility]) 0.8 1.2-2.2 ALBUMIN/GLOBULIN RATIO eCW1 ([facility]) ID Date Data Source BILE ACIDS FRACTIONATED 09/08/2020 12:00:00 AM EST eCW1 ([facility]) Name Value Range Interpretation Code Description Data Adia rce(s) Supporting Document(s) 3.1 0.0-10.0 BILE ACIDS FRACTIONATED eCW1 ( [facility]) ID Date Data Source PLZ OBS SINGLE GEST 07/21/2020 05:26:33 AM EDT eCW1 ([facility]) Name Value Range Interpretation Code Description Data Adia rce(s) Supporting Document(s) PLZ OBS SINGLE GEST eCW1 ([facility]) Procedure Social History Code Duration Value Status Description Data Source(s ) Smoking 07/08/2021 12:00:00 AM EDT Current Smoker completed Curre nt Smoker eCW1 ([facility]) Smoking 04/30/2021 12:00:00 AM EDT Current Smoker completed Curre nt Smoker eCW1 ([facility]) Smoking 04/30/2021 12:00:00 AM EDT Current Smoker completed Curre nt Smoker eCW1 ([facility]) Smoking 04/30/2021 12:00:00 AM EDT Current Smoker completed Curre nt Smoker eCW1 ([facility]) Smoking 04/30/2021 12:00:00 AM EDT Current Smoker completed Curre nt Smoker eCW1 ([facility]) Smoking 04/30/2021 12:00:00 AM EDT Current Smoker completed Curre nt Smoker eCW1 ([facility]) Smoking 04/17/2021 12:00:00 AM EDT Current Smoker completed Curre nt Smoker eCW1 ([facility]) Smoking 04/17/2021 12:00:00 AM EDT Current Smoker completed Curre nt Smoker eCW1 ([facility]) Smoking 01/12/2021 12:00:00 AM EDT Current Smoker completed Curre nt Smoker eCW1 ([facility]) Smoking 01/12/2021 12:00:00 AM EDT Current Smoker completed Curre nt Smoker eCW1 ([facility]) Smoking 11/15/2020 12:00:00 AM EST Current Smoker completed Curre nt Smoker eCW1 ([facility]) Smoking 11/15/2020 12:00:00 AM EST Current Smoker completed Curre nt Smoker eCW1 ([facility]) Smoking 11/15/2020 12:00:00 AM EST Current Smoker completed Curre nt Smoker eCW1 ([facility]) Smoking 11/01/2020 12:00:00 AM EST Current Smoker completed Curre nt Smoker eCW1 ([facility]) Smoking 11/01/2020 12:00:00 AM EST Current Smoker completed Curre nt Smoker eCW1 ([facility]) Smoking 11/01/2020 12:00:00 AM EST Current Smoker completed Curre nt Smoker eCW1 ([facility]) Smoking 10/23/2020 12:00:00 AM EST Current Smoker completed Curre nt Smoker eCW1 ([facility]) Smoking 10/16/2020 12:00:00 AM EST Current Smoker completed Curre nt Smoker eCW1 ([facility]) Smoking 10/16/2020 12:00:00 AM EST Current Smoker completed Curre nt Smoker eCW1 ([facility] [facility] Smoking 09/24/2020 12:00:00 AM EST Current Smoker completed Curre nt Smoker eCW1 ([facility]) Smoking 09/24/2020 12:00:00 AM EST Current Smoker completed Curre nt Smoker eCW1 ([facility]) Smoking 09/24/2020 12:00:00 AM EST Current Smoker completed Curre nt Smoker eCW1 ([facility]) Smoking 08/28/2020 12:00:00 AM EST Current Smoker completed Curre nt Smoker eCW1 ([facility]) Smoking 08/28/2020 12:00:00 AM EST Current Smoker completed Curre nt Smoker eCW1 ([facility]) Smoking 08/01/2020 12:00:00 AM EST Current Smoker completed Curre nt Smoker eCW1 ([facility]) Smoking 08/01/2020 12:00:00 AM EST Current Smoker completed Curre nt Smoker eCW1 ([facility]) Smoking 08/01/2020 12:00:00 AM EST Current Smoker completed Curre nt Smoker eCW1 ([facility]) Vital Signs ID Date Data Source UNK Name Value Range Interpretation Code Description Data Source(s) Respiratory rate 18 /min 18 /min eCW1 ([facility]) Body weight 214 [lb_av] 214 [lb_av] eCW1 ([facility]) Systolic blood pressure 118 mm[Hg] 118 mm[Hg] e CW1 ([facility]) Diastolic blood pressure 80 mm[Hg] 80 mm[Hg] eCW1 ([facility]) Body temperature 98.0 [degF] 98.0 [degF] eCW1 ( [facility]) Body weight 97.07 kg 97.07 kg eCW1 ([facility]) Body height 66 [in_i] 66 [in_i] eCW1 ([facility]) Body mass index (BMI) [Ratio] 34.54 kg/m2 34.54 kg/m2 W1 ([facility]) Heart rate 78 /min 78 /min eCW1 ([facility]) Body weight 215.4 [lb_av] 215.4 [lb_av] eCW1 ([facility]) Body weight 97.7 kg 97.7 kg eCW1 ([facility]) Body height 66 [in_i] 66 [in_i] eCW1 ([facility]) Body mass index (BMI) [Ratio] 34.76 kg/m2 34.76 kg/m2 eCW1 ([facility]) Systolic blood pressure 140 mm[Hg] 140 mm[Hg] e CW1 ([facility]) Diastolic blood pressure 82 mm[Hg] 82 mm[Hg] eCW1 ([facility]) Body weight 211.6 [lb_av] 211.6 [lb_av] eCW1 ([facility]) Body weight 95.98 kg 95.98 kg eCW1 ([facility]) Systolic blood pressure 128 mm[Hg] 128 mm[Hg] e CW1 ([facility]) Body height 66 [in_i] 66 [in_i] eCW1 ([facility]) Body mass index (BMI) [Ratio] 34.15 kg/m2 34.15 kg/m2 eCW1 ([facility]) Diastolic blood pressure 84 mm[Hg] 84 mm[Hg] eCW1 ([facility]) Body weight 236.6 [lb_av] 236.6 [lb_av] eCW1 ([facility]) Body height 66 [in_i] 66 [in_i] eCW1 ([facility]) Body mass index (BMI) [Ratio] 38.188 kg/m2 38.1 88 kg/m2 eCW1 ([facility]) Systolic blood pressure 150 mm[Hg] 150 mm[Hg] e CW1 ([facility]) Diastolic blood pressure 80 mm[Hg] 80 mm[Hg] eCW1 ([facility]) Body weight 235 [lb_av] 235 [lb_av] eCW1 ([facility]) Body height 66 [in_i] 66 [in_i] eCW1 ([facility]) Body mass index (BMI) [Ratio] 37.93 kg/m2 37.93 kg/m2 eCW1 ([facility]) Systolic blood pressure 130 mm[Hg] 130 mm[Hg] e CW1 ([facility]) Diastolic blood pressure 88 mm[Hg] 88 mm[Hg] eCW1 ([facility]) Body mass index (BMI) [Ratio] 37.446 kg/m2 37.4 46 kg/m2 eCW1 ([facility]) Body weight 232 [lb_av] 232 [lb_av] eCW1 ([facility]) Body weight 105.23 kg 105.23 kg eCW1 ([facility]) Body height 66 [in_i] 66 [in_i] eCW1 ([facility]) Systolic blood pressure 135 mm[Hg] 135 mm[Hg] e CW1 ([facility]) Diastolic blood pressure 60 mm[Hg] 60 mm[Hg] eCW1 ([facility]) Body weight 232 [lb_av] 232 [lb_av] eCW1 ([facility]) Body weight 105.23 kg 105.23 kg eCW1 ([facility]) Body height 66 [in_i] 66 [in_i] eCW1 ([facility]) Body mass index (BMI) [Ratio] 37.446 kg/m2 37.4 46 kg/m2 eCW1 ([facility]) Systolic blood pressure 122 mm[Hg] 122 mm[Hg] e CW1 ([facility]) Diastolic blood pressure 72 mm[Hg] 72 mm[Hg] eCW1 ([facility]) Body weight 232.8 [lb_av] 232.8 [lb_av] eCW1 ([facility]) Body weight 105.6 kg 105.6 kg eCW1 ([facility]) Body height 66 [in_i] 66 [in_i] eCW1 ([facility]) Body mass index (BMI) [Ratio] 37.575 kg/m2 37.5 75 kg/m2 W1 ([facility]) Body temperature 98.6 [degF] 98.6 [degF] eCW1 ( [facility]) Systolic blood pressure 140 mm[Hg] 140 mm[Hg] e CW1 ([facility]) Diastolic blood pressure 80 mm[Hg] 80 mm[Hg] eCW1 ([facility]) Body weight 230.2 [lb_av] 230.2 [lb_av] eCW1 ([facility]) Body weight 104.42 kg 104.42 kg eCW1 ([facility]) Body height 66 [in_i] 66 [in_i] eCW1 ([facility]) Body mass index (BMI) [Ratio] 37.155 kg/m2 37.1 55 kg/m2 eCW1 ([facility]) Systolic blood pressure 162 mm[Hg] 162 mm[Hg] e CW1 ([facility]) Diastolic blood pressure 92 mm[Hg] 92 mm[Hg] eCW1 ([facility]) Body weight 234.8 [lb_av] 234.8 [lb_av] eCW1 ([facility]) Body weight 106.5 kg 106.5 kg eCW1 ([facility]) Body height 66 [in_i] 66 [in_i] eCW1 ([facility]) Body mass index (BMI) [Ratio] 37.89 kg/m2 37.89 kg/m2 eCW1 ([facility]) Systolic blood pressure 142 mm[Hg] 142 mm[Hg] e CW1 ([facility]) Diastolic blood pressure 84 mm[Hg] 84 mm[Hg] eCW1 ([facility]) Body weight 230 [lb_av] 230 [lb_av] eCW1 ([facility]) Body height 66 [in_i] 66 [in_i] eCW1 ([facility]) Body mass index (BMI) [Ratio] 37.123 kg/m2 37.1 23 kg/m2 eCW1 ([facility]) Systolic blood pressure 168 mm[Hg] 168 mm[Hg] e CW1 ([facility]) Diastolic blood pressure 90 mm[Hg] 90 mm[Hg] eCW1 ([facility]) Body weight 226 [lb_av] 226 [lb_av] eCW1 ([facility]) Body height 66 [in_i] 66 [in_i] eCW1 ([facility]) Body mass index (BMI) [Ratio] 36.477 kg/m2 36.4 77 kg/m2 eCW1 ([facility]) Systolic blood pressure 118 mm[Hg] 118 mm[Hg] e CW1 ([facility]) Diastolic blood pressure 72 mm[Hg] 72 mm[Hg] eCW1 ([facility]) Body weight 224 [lb_av] 224 [lb_av] eCW1 ([facility]) Body height 66 [in_i] 66 [in_i] eCW1 ([facility]) Body mass index (BMI) [Ratio] 36.155 kg/m2 36.1 55 kg/m2 eCW1 ([facility]) Systolic blood pressure 134 mm[Hg] 134 mm[Hg] e CW1 ([facility]) Diastolic blood pressure 74 mm[Hg] 74 mm[Hg] eCW1 ([facility]) Body weight 224.2 [lb_av] 224.2 [lb_av] eCW1 ([facility]) Body height 66 [in_i] 66 [in_i] eCW1 ([facility]) Body mass index (BMI) [Ratio] 36.187 kg/m2 36.1 87 kg/m2 eCW1 ([facility]) Systolic blood pressure 126 mm[Hg] 126 mm[Hg] e CW1 ([facility]) Diastolic blood pressure 72 mm[Hg] 72 mm[Hg] eCW1 ([facility]) Body weight 218.6 [lb_av] 218.6 [lb_av] eCW1 ([facility]) Body height 66 [in_i] 66 [in_i] eCW1 ([facility]) Body mass index (BMI) [Ratio] 35.283 kg/m2 35.2 83 kg/m2 eCW1 ([facility]) Systolic blood pressure 128 mm[Hg] 128 mm[Hg] e CW1 ([facility]) Diastolic blood pressure 64 mm[Hg] 64 mm[Hg] eCW1 ([facility]) Body weight 214.4 [lb_av] 214.4 [lb_av] eCW1 ([facility]) Body weight 97.25 kg 97.25 kg eCW1 ([facility]) Body height 66 [in_i] 66 [in_i] eCW1 ([facility]) Body mass index (BMI) [Ratio] 34.605 kg/m2 34.6 05 kg/m2 eCW1 ([facility]) Systolic blood pressure 120 mm[Hg] 120 mm[Hg] e CW1 ([facility]) Diastolic blood pressure 68 mm[Hg] 68 mm[Hg] eCW1 ([facility]) Patient Treatment Plan of Care Planned Activity Planned Date Details Description Data Source (s) ELSIE 3-0.02 MG 07/03/2021 12:00:00 AM EDT eCW1 ([facility]) ELSIE 3-0.02 MG 07/03/2021 12:00:00 AM EDT eCW1 ([facility]) Suzanne FE 10/11 1-20 MG-MCG 04/17/2021 12:00:00 AM EDT eCW1 ([facility]) Suzanne FE 10/11 1-20 MG-MCG 04/17/2021 12:00:00 AM EDT eCW1 ([facility]) Microgestin FE 10/11 1-20 MG-MCG 01/12/2021 12:00:00 AM EDT eCW1 ([facility]) Microgestin FE 10/11 1-20 MG-MCG 01/12/2021 12:00:00 AM EDT eCW1 ([facility])
--- OUTSIDE RECORDS SUMMARY | 2021-07-30 06:56 | CCD ---
Author Author [facility] Organization [facility] Address Unknown Phone Unavailable Care Team Providers Care Research And Development Scientist Name Role Phone Pham Baum Unavailable PROBLEMS Type Condition ICD9-CM Code [id number] Code Onset Dates Condition S tatus W/U Status Risk SNOMED Code Notes Problem Generalized anxiety disorder F41.1 Active confirme d 88096393 Problem Hypertriglyceridemia E78.1 Active confirmed 206501310 Problem Smoking F17.200 Active confirmed 10742808 Problem Essential hypertension I10 Active confirmed [id number] ALLERGIES Allergen (clinical drug ingredient) Drug/Non Drug Allergy do cumented on EMR Reaction Allergy Type Onset Date Status Sulfa (for allergy use only) Hives Drug Allergy Active ENCOUNTERS from 1990 to 2021-05-23 Encounter Location Date Provider Diagnosis [address] [phone] [place] [address] May, Pham Reaeyad IMMUNIZATIONS Vaccine Route Administration Date Status TDAP 0.5mL (Boostrix) IM Intramuscular Oct 27, 2020 Administe red SOCIAL HISTORY Tobacco Use: Social History Observation Description Date Details (start date - stop date) Current Smoker Sex Assigned At : Social History Observation Description Sex Assigned At Unknown Education: Question Answer Notes Level of Education: Finished High School Language: Question Answer Notes Languages spoken: Nepali Denominational: Question Answer Notes Denominational 33 None Alcohol Screening: Question Answer Notes [...] Information RESULTS No Results REASON FOR VISIT COVID symptoms MEDICAL (GENERAL) HISTORY Type Description Date Medical [...] Name:Pham Baum, 2020-09 008 02:30:00 PM, [address] [facility], , [place], [address], Insurance Providers Payer Name Payer Address Payer Phone Insured Name Patient Relati onship to Insured Coverage Start Date Coverage End Date BCBS [place] [employer] PPO [phone] [facility] [employer] [facility] [place] [id number] MARCELA CAMARA self MEDICAID [facility] [address] [facility] [id number] MARCELA CAMARA self
[2021-07-30 08:20] LABS: BASO # 0.1 10^3/uL (0.0-0.2); BASO % 0.6 % (0.0-1.0); EOS # 0.1 10^3/uL (0.0-0.5); EOS % 1.3 % (0.0-3.0); HEMATOCRIT 41.5 % (36.0-47.0); HEMOGLOBIN 13.7 g/dl (12.0-15.5); LYMPH % 24.3 % (24.0-44.0); MEAN CORPUSCULAR HEMOGLOBIN 30.7 pg (27.0-33.0); MONO # 0.5 10^3/uL (0.0-0.8); NEUTROPHILS # 5.6 10^3/uL (1.5-8.5); NEUTROPHILS % 67.4 % (36.0-66.0); PLATELET COUNT, AUTOMATED 321 10^3/uL (150-450); RED BLOOD COUNT 4.46 10^6/uL (4.00-5.40); WHITE BLOOD COUNT 8.3 10^3/uL (4.0-10.0)
[2021-07-30 08:53] LABS: ALBUMIN 3.2 GM/DL (3.2-5.2); ALT/SGPT 18 U/L (12-78); BILIRUBIN,DIRECT < 0.1 MG/DL (0.0-0.2); BILIRUBIN,TOTAL 0.2 MG/DL (0.2-1.0); LIPASE 51 U/L (73-393)
[2021-07-30 09:44] LABS: RSV AMPLIFICATION NEGATIVE (NEGATIVE)
[2021-07-30 10:02] LABS: HCG, SERUM QUALITATIVE NEGATIVE (NEGATIVE)
--- NOTE | 2021-07-30 10:55 | REP ---
INDICATION: chest congestion. COMPARISON: 10/08/2016 FINDINGS: The superior mediastinal structures are midline. The cardiac silhouette is unremarkable in size, shape, and position. The diaphragmatic surfaces of the lungs are regular, and the costophrenic angles are clear. The pulmonary gómez are clear. The imaged osseous structures are intact. IMPRESSION: There is no acute cardiopulmonary disease. <Electronically signed by Nelson Black > 07/30/21 1055
[2021-07-30] MEDS ORDERED: MEDR4PAK PO (11:24)
[2021-07-30] MEDS ORDERED: TESS100C PO (11:26)
[2021-07-30 11:47] VITALS: BP 125/81
== END 2021-07-30 11:58 | disposition home or self-care (01) ==
LOC: M ED 06:01
DX: J20.9 Acute bronchitis, unspecified (principal); R07.89 Other chest pain; I10 Essential (primary) hypertension; E78.5 Hyperlipidemia, unspecified; F17.200 Nicotine dependence, unspecified, uncomplicated; Z88.2 Allergy status to sulfonamides; Z79.899 Other long term (current) drug therapy

== ENCOUNTER → 2021-08-19 | Outpatient (REF) ==
[~2021-08-19] MED LIST changes: +DOXY-350 PO; +MEDR4PAK PO; +TESS100C PO
[2021-08-19 16:40] LABS: RSV AMPLIFICATION NEGATIVE (NEGATIVE)
== END ==
LOC: M EMP 15:35
PROVIDERS: ATTEND Family Medicine
DX: Z11.52 Encounter for screening for COVID-19 (principal)

== ENCOUNTER → 2021-09-20 | Outpatient (REF) | LOC: M LABSMTC 09:26 | PROVIDERS: ATTEND Pediatrics | DX: Z11.52 Encounter for screening for COVID-19 (principal) ==

== ENCOUNTER → 2021-09-23 | Outpatient (REF) ==
[2021-09-23 17:22] LABS: RSV AMPLIFICATION NEGATIVE (NEGATIVE)
== END ==
LOC: M EMP 14:43
PROVIDERS: ATTEND Family Medicine
DX: Z20.822 Contact with and (suspected) exposure to COVID-19 (principal)

== ENCOUNTER → 2021-09-25 | Outpatient (REF) ==
[2021-09-25 15:58] LABS: RSV AMPLIFICATION NEGATIVE (NEGATIVE)
== END ==
LOC: M EMP 14:30
PROVIDERS: ATTEND Family Medicine
DX: Z20.822 Contact with and (suspected) exposure to COVID-19 (principal)

== ENCOUNTER → 2021-09-26 | Outpatient (REF) | payer BC, MEDICAID ==
[2021-09-26 12:30] LABS: RSV AMPLIFICATION NEGATIVE (NEGATIVE)
== END ==
LOC: M LAB REF 10:54
PROVIDERS: ATTEND Physician Assistant
DX: R50.9 Fever, unspecified (principal); R05.9 Cough, unspecified

== ENCOUNTER → 2021-10-04 | Outpatient (REF) | LOC: M LABSMTC 11:19 | PROVIDERS: ATTEND Pediatrics | DX: Z20.822 Contact with and (suspected) exposure to COVID-19 (principal) ==

== ENCOUNTER → 2022-01-20 | Outpatient (REF) | payer BC, MEDICAID | LOC: M LAB REF 11:54 | PROVIDERS: ATTEND Physician Assistant Medical | DX: J06.9 Acute upper respiratory infection, unspecified (principal) ==

== ENCOUNTER 2022-01-29 16:17 | Emergency (ER) | payer BC, MEDICAID ==
[~2022-01-29] VITALS: Ht 165.1 cm; Wt 90.9 kg
[2022-01-29 18:07] VITALS: BP 143/80
== END 2022-01-29 18:09 | disposition home or self-care (01) ==
LOC: M ED 16:17
DX: R22.0 Localized swelling, mass and lump, head (principal); I10 Essential (primary) hypertension; F41.9 Anxiety disorder, unspecified; Z88.2 Allergy status to sulfonamides; Z79.899 Other long term (current) drug therapy

== ENCOUNTER → 2022-04-01 | Outpatient (REF) | payer BC, MEDICAID | LOC: M LAB REF 17:01 | PROVIDERS: ATTEND Physician Assistant Medical | DX: M79.10 Myalgia, unspecified site (principal) ==

== ENCOUNTER → 2022-07-24 | Outpatient (REF) | payer MEDICAID, OTHER ==
[~2022-07-24] MED LIST changes: -DOXY-350 PO; +DOXY-444 PO
== END ==
LOC: M LAB REF 23:49
PROVIDERS: ATTEND Physician Assistant
DX: B34.9 Viral infection, unspecified (principal)

== ENCOUNTER → 2022-11-29 | Outpatient (CLI) | payer OTHER, MEDICAID ==
[2022-11-29 13:42] LABS: BASO # 0.1 10^3/uL (0.0-0.2); BASO % 0.8 % (0.0-1.0); EOS # 0.1 10^3/uL (0.0-0.5); EOS % 1.4 % (0.0-3.0); HEMATOCRIT 42.1 % (36.0-47.0); HEMOGLOBIN 13.5 g/dl (12.0-15.5); LYMPH % 30.7 % (24.0-44.0); MEAN CORPUSCULAR HGB CONC 32.1 g/dl (32.0-36.5); MEAN CORPUSCULAR VOLUME 96.6 fl (80.0-96.0); MONO # 0.4 10^3/uL (0.0-0.8); MONO % 5.4 % (2.0-8.0); NEUTROPHILS # 4.1 10^3/uL (1.5-8.5); NEUTROPHILS % 61.5 % (36.0-66.0); PLATELET COUNT, AUTOMATED 349 10^3/uL (150-450); RED BLOOD COUNT 4.36 10^6/uL (4.00-5.40); WHITE BLOOD COUNT 6.6 10^3/uL (4.0-10.0)
[2022-11-29 14:13] LABS: FREE T4 1.04 NG/DL (0.89-1.76); THYROID STIMULATING HORMONE 1.136 uIU/ML (0.55-4.78)
[2022-11-29 14:29] LABS: ALBUMIN 3.5 G/DL (3.2-5.2); ALKALINE PHOSPHATASE 62 U/L (46-116); ALT/SGPT 12 U/L (7.0-40); AST/SGOT < 8 U/L (<34); BILIRUBIN,TOTAL 0.3 MG/DL (0.3-1.2); BLOOD UREA NITROGEN 12 MG/DL (9-23); CALCIUM LEVEL 8.8 MG/DL (8.5-10.1); CARBON DIOXIDE LEVEL 26 MMOL/L (20-31); CHLORIDE LEVEL 107 MMOL/L (98-107); CREATININE FOR GFR 0.68 MG/DL (0.55-1.30); GLOMERULAR FILTRATION RATE > 60.0 (>60); GLUCOSE, FASTING 78 MG/DL (60-100); POTASSIUM SERUM 4.3 MMOL/L (3.5-5.1); SODIUM LEVEL 140 MMOL/L (136-145); TOTAL PROTEIN 6.9 G/DL (5.7-8.2)
[2022-11-29 21:22] LABS: ERYTHROCYTE SEDIMENTATION RATE 29 mm/hr (0-20)
== END ==
LOC: M PLALAB 10:02
PROVIDERS: ATTEND Physician Assistant
DX: R42 Dizziness and giddiness (principal); R51.9 Headache, unspecified; J01.90 Acute sinusitis, unspecified; R53.83 Other fatigue; H53.9 Unspecified visual disturbance; R07.89 Other chest pain

== ENCOUNTER → 2022-12-02 | Outpatient (CLI) | payer OTHER, MEDICAID | LOC: M PLAIMG 10:03 | PROVIDERS: ATTEND Physician Assistant | DX: R42 Dizziness and giddiness (principal); R51.9 Headache, unspecified; H53.9 Unspecified visual disturbance ==

== ENCOUNTER → 2022-12-20 | Outpatient (CLI) | payer OTHER, MEDICAID ==
[2022-12-20 11:48] LABS: BASO # 0.1 10^3/uL (0.0-0.2); EOS # 0.1 10^3/uL (0.0-0.5); EOS % 1.6 % (0.0-3.0); HEMATOCRIT 42.3 % (36.0-47.0); HEMOGLOBIN 13.6 g/dl (12.0-15.5); LYMPH # 2.5 10^3/uL (1.5-5.0); LYMPH % 41.6 % (24.0-44.0); MEAN CORPUSCULAR HEMOGLOBIN 31.1 pg (27.0-33.0); MEAN CORPUSCULAR HGB CONC 32.2 g/dl (32.0-36.5); MEAN CORPUSCULAR VOLUME 96.6 fl (80.0-96.0); MONO # 0.4 10^3/uL (0.0-0.8); MONO % 6.9 % (2.0-8.0); NEUTROPHILS % 48.7 % (36.0-66.0); PLATELET COUNT, AUTOMATED 324 10^3/uL (150-450); RED BLOOD COUNT 4.38 10^6/uL (4.00-5.40); WHITE BLOOD COUNT 6.1 10^3/uL (4.0-10.0)
[2022-12-20 12:06] LABS: CPK CREATINE PHOSPHOKINASE 55 U/L (34-145)
[2022-12-20 12:07] LABS: CK-MB VALUE MASS < 1.0 NG/ML (<3.6); MB/CK RELATIVE INDEX 1.81 (< OR =4); RHEUMATOID FACTOR QUANT < 3.5 IU/ML (<14)
[2022-12-20 12:08] LABS: ERYTHROCYTE SEDIMENTATION RATE 27 mm/hr (0-20)
[2022-12-20 12:10] LABS: FOLATE 10.34 NG/ML (>5.4); VITAMIN B12 LEVEL 306 PG/ML (211-911)
== END ==
LOC: M PLALAB 08:21
PROVIDERS: ATTEND Student in an Organized Health Care Education/Training Program
DX: R07.89 Other chest pain (principal)

== ENCOUNTER → 2022-12-30 | Outpatient (CLI) | payer OTHER, MEDICAID | LOC: M PLAIMG 11:16 | PROVIDERS: ATTEND Student in an Organized Health Care Education/Training Program | DX: R07.89 Other chest pain (principal) ==

== ENCOUNTER → 2023-04-22 | Outpatient (REF) | payer OTHER, MEDICAID | LOC: M LAB REF 21:18 | PROVIDERS: ATTEND Physician Assistant Medical | DX: J02.9 Acute pharyngitis, unspecified (principal) ==

== ENCOUNTER → 2023-05-19 | Outpatient (REF) | payer OTHER, MEDICAID | LOC: M SFHCWAGY 17:35 | PROVIDERS: ATTEND Advanced Practice Midwife | DX: Z12.4 Encounter for screening for malignant neoplasm of cervix (principal) | CPT/HCPCS: 87624; G0123 ==

== ENCOUNTER → 2023-09-03 | Outpatient (REF) | payer OTHER, MEDICAID | LOC: M LAB REF 12:27 | PROVIDERS: ATTEND Physician Assistant | DX: B34.9 Viral infection, unspecified (principal) ==

== ENCOUNTER → 2023-09-30 | Outpatient (REF) | payer OTHER, MEDICAID | LOC: M SFHCPLAZ 14:41 | PROVIDERS: ATTEND Family Medicine | DX: Z53.9 Procedure and treatment not carried out, unspecified reason (principal); Z00.00 Encounter for general adult medical examination without abnormal findings; I10 Essential (primary) hypertension; E78.1 Pure hyperglyceridemia ==

== ENCOUNTER → 2023-11-04 | Outpatient (REF) | payer OTHER, MEDICAID | LOC: M SFHCPLAZ 16:41 | PROVIDERS: ATTEND Family Medicine | DX: B99.9 Unspecified infectious disease (principal) ==

== ENCOUNTER → 2023-11-11 | Outpatient (CLI) | payer OTHER ==
[2023-11-11 16:14] LABS: TOTAL 25(OH) VITAMIN D 11.9 NG/ML (20.0-100.0)
[2023-11-11 16:16] LABS: BLOOD UREA NITROGEN 13 MG/DL (9-23); CALCIUM LEVEL 8.3 MG/DL (8.5-10.1); CARBON DIOXIDE LEVEL 27 MMOL/L (20-31); CHLORIDE LEVEL 107 MMOL/L (98-107); CHOLESTEROL LEVEL 240 MG/DL (<200); CHOLESTEROL RISK RATIO 4.31 (<5); GLOMERULAR FILTRATION RATE > 60.0 (>60); GLUCOSE, FASTING 82 MG/DL (60-100); HDL CHOLESTEROL 55.6 MG/DL (>40); NON-HDL-C 184.4 MG/DL; POTASSIUM SERUM 4.1 MMOL/L (3.5-5.1); SODIUM LEVEL 140 MMOL/L (136-145); TRIGLYCERIDES LEVEL 137 MG/DL (<150)
[2023-11-11 16:20] LABS: IMMUNOGLOBULIN A 234.1 MG/DL (40-350); IMMUNOGLOBULIN G 972 MG/DL (650-1600)
== END ==
LOC: M PLALAB 14:47
PROVIDERS: ATTEND Student in an Organized Health Care Education/Training Program
DX: Z00.00 Encounter for general adult medical examination without abnormal findings (principal); I10 Essential (primary) hypertension; E78.1 Pure hyperglyceridemia

== ENCOUNTER → 2023-12-19 | Outpatient (CLI) | payer OTHER | LOC: M RAD 17:14 | PROVIDERS: ATTEND Student in an Organized Health Care Education/Training Program | DX: R51.9 Headache, unspecified (principal) ==

== ENCOUNTER → 2024-01-13 | Outpatient (REF) | payer OTHER | LOC: M LAB REF 12:14 | PROVIDERS: ATTEND Physician Assistant Medical | DX: B34.9 Viral infection, unspecified (principal) ==

== ENCOUNTER → 2024-01-20 | Outpatient (REF) | payer OTHER, MEDICAID ==
[~2024-01-20] MED LIST changes: +DOXY-440 PO; -DOXY-444 PO
== END ==
LOC: M SFHCPLAZ 10:13
PROVIDERS: ATTEND Family Medicine
DX: Z53.20 Procedure and treatment not carried out because of patient's decision for unspecified reasons (principal)

== ENCOUNTER → 2024-01-26 | Outpatient (CLI) | payer OTHER, MEDICAID | LOC: M PLALAB 15:29 | PROVIDERS: ATTEND Student in an Organized Health Care Education/Training Program | DX: E55.9 Vitamin D deficiency, unspecified (principal) ==

== ENCOUNTER → 2025-04-06 | Outpatient (REF) | payer OTHER, MEDICAID | LOC: M SFHCPLAZ 22:13 | PROVIDERS: ATTEND Family Medicine | DX: Z53.9 Procedure and treatment not carried out, unspecified reason (principal) ==

== ENCOUNTER → 2025-08-26 | Outpatient (CLI) | payer MEDICAID, OTHER ==
[2025-08-26 15:03] LABS: PLATELET COUNT, AUTOMATED 382 10^3/uL (150-450)
[2025-08-26 15:05] LABS: LDH LACTATE DEHYDROGENASE 137 U/L (120-246)
[2025-08-26 15:06] LABS: ALT/SGPT < 9 U/L (7.0-40); AST/SGOT < 8 U/L (<34); CREATININE FOR GFR 0.61 MG/DL (0.55-1.30); GLOMERULAR FILTRATION RATE > 90.0 (>60)
[2025-08-26 15:24] LABS: TOTAL PROTEIN,RANDOM URINE 16.8 MG/DL (0.0-14.0)
[2025-08-26 15:32] LABS: HIV 1&2 SCREEN NEGATIVE (NEGATIVE)
[2025-08-26 15:41] LABS: HEPATITIS C VIRUS ABY INDEX < 0.02 INDEX (<0.8)
[2025-08-26 16:11] LABS: Trichomonas vaginalis (AMP) NOT DETECTED (NEGATIVE)
[2025-08-26 16:34] LABS: GC DNA AMPLIFICATION NEGATIVE (NEGATIVE)
== END ==
LOC: M PLALAB 09:43
PROVIDERS: ATTEND Obstetrics & Gynecology
DX: Z34.91 Encounter for supervision of normal pregnancy, unspecified, first trimester (principal); Z3A.00 Weeks of gestation of pregnancy not specified

== ENCOUNTER → 2025-09-18 | Outpatient (REF) | payer MEDICAID | LOC: M LAB REF 16:12 | PROVIDERS: ATTEND Physician Assistant Medical | DX: B34.9 Viral infection, unspecified (principal) ==